=== PATIENT | male | born 1935 | race Caucasian/White ===

== ENCOUNTER → 2017-11-03 | Outpatient (CLI) | payer MEDICARE ==
[~2017-11-03] MED LIST: ADVAIR 250-501 EACH INH; ADVAIR HFA 115-12 GM INH; ASPIRIN81 MG PO; CENTRUM SILVER1 EAC4 PO; CLOBETASOL1 EA/15 GM TOP; COZAAR25 MG PO; CRESTOR10 MG; CRESTOR10 MG PO; CYCLOSET0.8 MG PO; DIATRIZOATE MEGL/DIATRIZOA SOD 30 ML BTL PO ONE; FLOVENT DISKUS50 MCG; FLUTICASONE PRO16 GM; HYDROCHLOROTHIA25 MG PO; IOPAMIDOL 370 MG/ML 200 ML INFUS..BTL INJ ONE; LEVOTHYROXINE50 MCG PO; LORATADINE10 MG PO; LOSARTAN; LOVAZA1 GM PO; METOPROLOL TART50 MG PO; NIACIN; OMEPRAZOLE40 MG PO; ONGLYZA5 MG PO; PEDIADERM TA 0115 GM TD; PEDIADERM TA 0115 GM TOP; POLYETHYLENE; RAPAFLO8 MG; RAPAFLO8 MG PO; SODIUM CHLORIDE 0.9% 250ML 500 ML ONE; SODIUM CHLORIDE 0.9% 50ML 50 ML ONE; SYSTANE BALANCE10 ML OU; SYSTANE LIQUID15 ML OU; TRAMADOL-ACETAMI1 EA PO; ULTRACET TABLE1 EACH PO; VOLTAREN100 GM TOP; XARELTO20 MG PO; Z LORATADINE PO; Z.0.ACTOS15 MG PO; Z.0.AMIODARONE HCL20 PO; Z.0.ASPIR 8181 MG PO; Z.0.CRESTOR10 MG PO; Z.0.FENOFIBRATE160 M PO; Z.0.GLIMEPIRIDE1 MG PO; Z.0.LOVAZA1 GM PO; Z.0.OMEPRAZOLE40 MG PO; Z.0.ONGLYZA5 MG PO; Z.0.TAMSULOSIN HCL0. PO; Z.3.CENTRUM SILVER1; [UNRECOGNIZED DRUG - OTHER]
[2017-11-03 16:40] LABS: CREATININE, SERUM 1.3 mg/dL (0.72-1.25)
[2017-11-03 16:48] LABS: BASOPHILS % 0.3 % (0.0-1.0); EOSINOPHILS # (AUTO) 0.2 (0.0-0.4); EOSINOPHILS % 2.2 % (0.0-6.0); HEMATOCRIT 32.1 % (38.2-49.6); HEMOGLOBIN 11.6 g/dL (14.0-18.0); LYMPHOCYTES # (AUTO) 1.9 (1.0-3.2); LYMPHOCYTES % 17.5 % (18.0-39.1); MEAN CORPUSCULAR HEMOGLOBIN 32.5 pg (28-32); MEAN CORPUSCULAR HGB CONC 36.1 g/dL (31-35); MEAN CORPUSCULAR VOLUME 89.9 fL (81-99); MONOCYTES % 9.7 % (4.4-11.3); NEUTROPHILS # (AUTO) 7.4 (2.1-6.9); NEUTROPHILS % 69.7 % (38.7-80.0); PLATELET COUNT 169 x10e3/uL (140-360); RED BLOOD COUNT 3.57 x10e6/uL (4.3-5.7); RED CELL DISTRIBUTION WIDTH 14.6 % (11.7-14.4)
--- NOTE | 2017-11-03 18:32 | Diagnostic Imaging Report ---
EXAM: CT Abdomen and Pelvis WITH contrast INDICATION: \S\DIARRHEA; ABD PAIN; HX OF DIVERTIC COMPARISON: CT dated 04/18/2017 TECHNIQUE: Abdomen and pelvis were scanned utilizing a multidetector helical scanner from the lung base to the pubic symphysis after administration of IV contrast. Coronal and sagittal reformations were obtained. Routine protocol was performed. Scan was performed when during portal venous phase. IV CONTRAST: 100 mL of Isovue-370 ORAL CONTRAST: Gastroview COMPLICATIONS: None RADIATION DOSE: Total DLP: 570.9 mGy*cm Estimated effective dose: (DLP x 0.015 x size factor) mSv CTDIvol has been reviewed. It is below the limits set by the Radiation Protocol Committee (RPC). FINDINGS: LINES and TUBES: Partially seen distal lead of cardiac pacemaker terminating in right ventricle. LOWER THORAX: The heart is borderline in size. Aortic annulus calcification. HEPATOBILIARY: No focal hepatic lesions. No biliary ductal dilation. GALLBLADDER: Cholecystectomy. SPLEEN: No splenomegaly. Calcified granulomas. PANCREAS: No focal masses or ductal dilatation. ADRENALS: No adrenal nodules KIDNEYS/URETERS: Kidneys enhance symmetrically. No hydronephrosis. Posterior left superior pole 2.6 cm cyst. There is also a posterior left midpole 4.7 x 4.5 cm cyst. Right midpole 3.6 cm cyst. There are few additional subcentimeter hypodensities which are too small to characterize. No stones. GI TRACT: No abnormal distention, wall thickening, or evidence of bowel obstruction. Right upper quadrant colonic interposition. Scattered colonic diverticula without evidence of diverticulitis. Appendix is normal. PELVIC ORGANS/BLADDER: Mildly prominent prostate measuring 4.8 cm in transverse diameter with coarse central calcification. Bladder is unremarkable. LYMPH NODES: No lymphadenopathy. VESSELS: Focal ectasia of infrarenal abdominal aorta, measuring 2.9 cm. Mild to moderate aortoiliac atherosclerotic calcification. PERITONEUM / RETROPERITONEUM: No free air or fluid. 2.1 x 2.3 cm left upper quadrant lesion which is best seen on series 301, image 52. There are preserved fat planes between this lesion and greater curvature of stomach. Splenic artery abuts the inferior portion of this lesion. BONES: Multilevel degenerative changes of the spine, most multiple at L2-L3. SOFT TISSUES: Unremarkable. IMPRESSION: 1. No acute inflammatory process in the abdomen/pelvis, specifically no signs acute diverticulitis. 2. 2.3 cm left upper quadrant lesion likely represents a pseudocyst in view of prior acute pancreatitis. Recommend attention on follow-up examination. 3. Bilateral renal cysts. Findings discussed with physician neurosurgical physician assistant Tiana at 6:25 PM, on 11/03/2017. Signed by: Dr. Karlo Cancino MD on 11/03/2017 6:28 PM
== END ==
LOC: CT 15:40
PROVIDERS: ATTEND Family Medicine
DX: R19.7 Diarrhea, unspecified (principal); R10.32 Left lower quadrant pain; Z87.19 Personal history of other diseases of the digestive system
CPT/HCPCS: 36415; 74177; 82565; 84520; 85025; J7050; Q9967

== ENCOUNTER → 2017-11-30 | Day surgery (SDC) | payer MEDICARE ==
[2017-11-24 10:48] LABS: BASOPHILS % 0.5 % (0.0-1.0); EOSINOPHILS # (AUTO) 0.3 (0.0-0.4); EOSINOPHILS % 3.7 % (0.0-6.0); HEMATOCRIT 36.1 % (38.2-49.6); HEMOGLOBIN 12.2 g/dL (14.0-18.0); LYMPHOCYTES # (AUTO) 1.6 (1.0-3.2); LYMPHOCYTES % 19.8 % (18.0-39.1); MEAN CORPUSCULAR HGB CONC 33.8 g/dL (31-35); MEAN CORPUSCULAR VOLUME 94.8 fL (81-99); MONOCYTES # (AUTO) 0.8 (0.2-0.8); MONOCYTES % 9.5 % (4.4-11.3); NEUTROPHILS # (AUTO) 5.4 (2.1-6.9); NEUTROPHILS % 66.1 % (38.7-80.0); PLATELET COUNT 183 x10e3/uL (140-360); RED BLOOD COUNT 3.81 x10e6/uL (4.3-5.7); RED CELL DISTRIBUTION WIDTH 14.3 % (11.7-14.4)
[~2017-11-30] MED LIST changes: +AMLODIPINE BESYL5 MG PO; +CARVEDILOL12.5 MG PO; -DIATRIZOATE MEGL/DIATRIZOA SOD 30 ML BTL PO ONE; -IOPAMIDOL 370 MG/ML 200 ML INFUS..BTL INJ ONE; +LIDOCAINE HCL 2% LOCAL INJ 5 ML SDV VIAL INJ ONE; +POTASSIUM CHLO10 ME1 PO; +PROPOFOL IV EMULSION 10 MG/ML 50 ML VIAL ONE; -SODIUM CHLORIDE 0.9% 250ML 500 ML ONE; -SODIUM CHLORIDE 0.9% 50ML 50 ML ONE
--- NOTE | 2017-11-30 10:45 | Operative Report ---
DATE OF PROCEDURE: November 30, 2017 REFERRING PHYSICIAN: Dr. Fabian Khan PROCEDURE PERFORMED: Esophagogastroduodenoscopy. INDICATIONS FOR EGD: Anemia. MEDICATION: Patient was done under MAC. Please see anesthesiologist's note. PROCEDURE: With the patient in the left lateral decubitus position, the flexible fiberoptic Olympus gastroscope was introduced into the esophagus under direct visualization without any difficulty. The esophagus appeared to be within normal limits. There was a small hiatal hernia and that was traversed with ease. The scope was advanced into the stomach. Mucosa overlying the antrum and the body revealed some patchy erythema and mild to moderate edema, and biopsies were obtained and sent to stain for H. pylori. The pylorus appeared to be of normal contour and shape. It was intubated with ease. The scope was advanced all the way to the 2nd portion of the duodenum. The mucosa overlying the proximal 2nd portion and the duodenal bulb appeared to be within normal limits. The scope was then withdrawn back into the stomach and retroflexed. The mucosa overlying the fundus and cardia appeared to be within normal limits. The scope was then straightened out. The stomach was decompressed. The scope was subsequently withdrawn. Patient tolerated the procedure well. IMPRESSION 1. Normal esophagus. 2. Small hiatal hernia. 3. Gastritis, biopsied. Biopsies sent to stain for Helicobacter pylori. PLAN: Follow up histology. Initiate Protonix 40 mg 1 p.o. q.a.m. a.c. Findings do not necessarily explain the patient's anemia. Will proceed with small bowel series. If negative, might consider a colonoscopy. Job#: [id number] RI cc:FABIAN KHAN DO
== END | disposition home or self-care (01) ==
LOC: OR 07:22
PROVIDERS: ATTEND Internal Medicine Gastroenterology
DX: D64.9 Anemia, unspecified (principal); K29.70 Gastritis, unspecified, without bleeding; K44.9 Diaphragmatic hernia without obstruction or gangrene; R19.7 Diarrhea, unspecified; E11.9 Type 2 diabetes mellitus without complications; M19.90 Unspecified osteoarthritis, unspecified site; J44.9 Chronic obstructive pulmonary disease, unspecified; G47.33 Obstructive sleep apnea (adult) (pediatric); K86.3 Pseudocyst of pancreas; I10 Essential (primary) hypertension; H91.90 Unspecified hearing loss, unspecified ear; E03.9 Hypothyroidism, unspecified; R42 Dizziness and giddiness; F17.290 Nicotine dependence, other tobacco product, uncomplicated; Z01.810 Encounter for preprocedural cardiovascular examination; Z01.812 Encounter for preprocedural laboratory examination; Z79.82 Long term (current) use of aspirin; Z79.02 Long term (current) use of antithrombotics/antiplatelets; Z99.81 Dependence on supplemental oxygen; Z68.31 Body mass index [BMI] 31.0-31.9, adult; Z95.0 Presence of cardiac pacemaker
CPT/HCPCS: 36415 ×2; 43239; 82948; 85025; 88305; 88312; 93005; J2001

== ENCOUNTER 2017-12-12 06:42 | Inpatient (IN) | payer MEDICARE ==
[~2017-12-12] VITALS: Ht 177.8 cm; Wt 83.9 kg
[~2017-12-12 06:42] MED LIST changes: +ALLERGY RELIEF60 MG PO; +ARTIFICIAL TEA1 EACH OP; +CENTRUM SILVER1 EAC3 PO; +FISH OIL 1,0001 EAC2 PO; +FUROSEMIDE40 MG PO; -LIDOCAINE HCL 2% LOCAL INJ 5 ML SDV VIAL INJ ONE; -PROPOFOL IV EMULSION 10 MG/ML 50 ML VIAL ONE
[2017-12-12] MEDS ORDERED: MORPHINE SULFATE 2 MG/ML SYR IV STA (07:07)
[2017-12-12] MEDS ORDERED: SODIUM CHLORIDE 0.9% 500ML 500 ML IV STA ×2 (07:07→13:03)
[2017-12-12] MEDS ORDERED: FENTANYL CITRATE/PF 100MCG/2 ML INJ IV ONE ×2 (07:45→08:45)
[2017-12-12 07:54] LABS: BASOPHILS % 0.1 % (0.0-1.0); EOSINOPHILS % 0.1 % (0.0-6.0); HEMATOCRIT 41.9 % (38.2-49.6); HEMOGLOBIN 14.3 g/dL (14.0-18.0); LYMPHOCYTES # (AUTO) 1.4 (1.0-3.2); MEAN CORPUSCULAR HEMOGLOBIN 31.4 pg (28-32); MEAN CORPUSCULAR HGB CONC 34.1 g/dL (31-35); MEAN CORPUSCULAR VOLUME 91.9 fL (81-99); MONOCYTES # (AUTO) 1.6 (0.2-0.8); MONOCYTES % 7.9 % (4.4-11.3); NEUTROPHILS # (AUTO) 17.5 (2.1-6.9); NEUTROPHILS % 84.4 % (38.7-80.0); PLATELET COUNT 202 x10e3/uL (140-360); RED BLOOD COUNT 4.56 x10e6/uL (4.3-5.7); RED CELL DISTRIBUTION WIDTH 13.8 % (11.7-14.4)
[2017-12-12] MEDS: ONDANSETRON HCL INJ 2 MG/ML VIAL IV PRN (08:01)
--- NOTE | 2017-12-12 08:03 | Diagnostic Imaging Report ---
Exams: Head and Cervical Spine CTs without IV contrast History: Trauma, fall Comparison studies: None Technique: Axial images were obtained from the brain and cervical spine. Coronal and sagittal images reconstructed from the axial data. Intravenous contrast: None Findings: Head CT: Scalp: No abnormalities. Bones: No fractures, blastic or lytic lesions. Extra-axial spaces: No masses. No fluid collections. Brain sulci: Mildly prominent. Ventricles: Mild compensatory dilatation. No hydrocephalus. Extra-axial spaces: No mass, no fluid collection. Parenchyma: No mass, acute hemorrhage or acute cortical vascular insults. A few scattered hypodensities in the supratentorial white matter are nonspecific but most compatible with chronic small vessel ischemic changes. Unchanged small chronic cortical/subcortical insult along the right superior frontal sulcus posteriorly. Additional small chronic insult with encephalomalacia in the posterior left cerebellum and small lacunar insult in the right middle cerebellum. Sellar/suprasellar region: No abnormalities. Craniocervical junction: The foramen magnum is patent. No Chiari one malformation. Cervical spine CT: Fractures: None. Soft tissues: No gross abnormalities. Atlantoaxial articulation: Intact. Alignment: Straightened cervical curvature. Minimal anterolisthesis of C2 on C3 and mild anterolisthesis of C7 on T1 and T1 on T2 which may be degenerative in etiology. Cervicomedullary junction: No abnormalities. The foramen magnum is patent. Vertebrae: No infection. Nonaggressive-appearing nonspecific 9 mm sclerotic lesion in the anterior T1 vertebral body, possibly bone island. Degenerative changes: C1-C2: Narrowing at the atlantodental interval with enthesophyte formation along the anterior C1 arch. C2-C3: Mildly degenerated disc. Moderate left and mild right facet arthrosis. Patent canal and foramina. C3-C4: Mildly degenerated disc. No significant canal stenosis. Mild left foraminal stenosis due to uncovertebral facet arthrosis. Patent right foramen. C4-C5: Severely degenerated disc with near complete loss of disc height. Mild canal stenosis due to a disc osteophyte complex. Moderate bilateral foraminal stenosis due to uncovertebral arthrosis and moderate left and mild right facet arthrosis. C5-C6 moderately degenerated disc. Moderate canal stenosis due to a disc osteophyte complex. Severe right and moderate left foraminal stenosis due to uncovertebral facet arthrosis. C6-C7: Moderate to severe canal stenosis due to a disc osteophyte complex. Severe bilateral foraminal stenosis due to uncovertebral facet arthrosis. C7-T1: Moderately degenerated disc. Anterolisthesis of C7 on T1 with associated facet arthrosis result in mild to moderate left foraminal stenosis. No significant right foraminal stenosis or canal stenosis. T1-T2: Moderately degenerated disc. Moderate bilateral facet arthrosis. Anterolisthesis of T1 on T2 with associated uncovered disc and facet arthrosis with moderate right foraminal stenosis. No significant canal or left foraminal stenosis. Additional findings: Partially imaged small left pneumothorax and gas gas within the included upper left dorsal thoracic soft tissues. Incidental findings: Atherosclerotic calcifications in the carotid siphons and left intradural artery. Bilateral lens replacements related to previous cataract surgery. IMPRESSION: Head CT: 1. No acute abnormalities. 2. No changes from the previous head CT of 03/08/2016. 3. Mild generalized volume loss. 4. Mild chronic microvascular ischemic changes with small chronic right frontal and bilateral cerebellar insults. Cervical spine CT: 1. No cervical spine fracture or acute subluxation. 2. Advanced degenerative changes as described with moderate to severe canal stenosis at C6-C7. 3. Cannot adequately evaluate ligament, spinal cord and or vascular abnormalities on the basis of this examination. 4. Left apical pneumothorax. Please refer to chest CT report for the same date for further characterization of thoracic findings. Findings were discussed with Dr. Hendricks at 7:54 AM on 12/12/2017. Signed by: Dr. Pankaj Linares M.D. on 12/12/2017 7:59 AM
[2017-12-12 08:06] LABS: INR 0.96; PROTHROMBIN TIME 13.3 seconds (11.9-14.5)
[2017-12-12 08:07] LABS: PARTIAL THROMBOPLASTIN TIME 33.5 seconds (23.8-35.5)
--- NOTE | 2017-12-12 08:07 | Diagnostic Imaging Report ---
PROCEDURE: CT CHEST WITHOUT CONTRAST CT scan of the chest WITHOUT intravenous contrast, using standard protocol. TECHNIQUE: The chest was scanned utilizing a multidetector helical scanner from the apex to the level of the adrenal glands. No IV contrast was administered as per physician request. Coronal and sagittal multiplanar reformations were obtained. COMPARISON: None. INDICATIONS: FALL, RIB PAIN, RIB FRACTURE FINDINGS: Lines/tubes: Right chest cardiac device with leads positioned within the right atrium and ventricle. Lungs and Airways: Contusion is present in the left lower lobe. Scattered blebs are noted in the lungs bilaterally. The right lung is clear, without focal mass or consolidation. Pleura: Small left hemothorax is present. Pneumothorax is present in the left lung, with the largest component in the anterior aspect of the left lung base with a smaller pneumothorax in the left apex. No right pleural effusion or pneumothorax. Heart and mediastinum: Atherosclerotic calcifications of the thoracic aorta and coronary arteries. The thyroid gland is normal. No significant mediastinal, hilar or axillary lymphadenopathy is seen. The heart and pericardium are within normal limits. Soft tissues: Subcutaneous air is present along the left lateral chest wall. Abdomen: Limited views of the upper abdomen show no abnormality within the visualized liver, spleen, pancreas, or kidneys. The adrenal glands are normal. Cholecystectomy. Bilateral renal simple cysts are partially visualized. Several coarse calcifications of the spleen are present. No splenic laceration. Bones: The visualized bony thorax is within normal limits. Rib fractures include the following: Acute transverse fracture of the left lateral fourth rib. Acute comminuted fractures of the lateral fifth rib and the posterolateral left fifth rib. Acute comminuted fractures of the left lateral sixth rib and the posterolateral left sixth rib. Acute comminuted fractures of the left posterior seventh rib and the lateral seventh rib. Acute comminuted fractures of the left posterior eighth rib and the posterolateral eighth rib. Acute comminuted fracture of the left posterior ninth rib. IMPRESSION: Multiple left rib fractures with flail components of the left fifth, sixth, seventh, and eighth ribs. Contusion of the left lower lobe. Small left hemothorax. Left pneumothorax. The findings were discussed with the emergency room physician at 0745 hrs. on 12/12/2017. Dictated by: Jose Mock M.D. on 12/12/2017 at 8:17 Electronically approved by: Jose Mock M.D. on 12/12/2017 at 8:17
[2017-12-12 08:17] LABS: ALBUMIN 3.9 g/dL (3.5-5.0); ANION GAP 16.2 mmol/L (8-16); CALCIUM 10.2 mg/dL (8.4-10.2); CREATININE, SERUM 2.07 mg/dL (0.72-1.25); POTASSIUM 3.2 mmol/L (3.5-5.1)
[2017-12-12 08:26] LABS: CREATINE KINASE MB 4.9 ng/mL (0.00-5.00)
[2017-12-12] MEDS ORDERED: KETOCONAZOLE15 GM TOP (08:38)
[2017-12-12] MEDS ORDERED: [UNRECOGNIZED DRUG - OTHER] TOP (08:38)
[2017-12-12] MEDS ORDERED: ADVAIR 100-501 EACH INH (08:38)
[2017-12-12] MEDS ORDERED: [UNRECOGNIZED DRUG - OTHER] PO (08:38)
[2017-12-12] MEDS ORDERED: VOLTERAN TOP (08:38)
[2017-12-12] MEDS ORDERED: LOVENOX60 MG/0.6 SC (08:38)
[2017-12-12] MEDS: SODIUM CHLORIDE 0.9% 1000ML 1,000 ML IV SCH ×3 (08:39→23:49)
--- NOTE | 2017-12-12 10:00 | Diagnostic Imaging Report ---
CORRECTION Corrected on: 12/12/2017; Dictated by: Jose Mock M.D. on 12/12/2017 at 10:12 Electronically approved by: Jose Mock M.D. on 12/12/2017 at 10:12 PROCEDURE: A single AP view of the chest. COMPARISON: CT chest 12/12/2017. INDICATIONS: PNEUMOTHORAX FINDINGS: Lines/tubes: Right chest cardiac device with leads projecting over the expected regions of the right atrium and ventricle. Lungs: Contusion in the left lung base. The right lung is clear. Pleura: Trace left apical pneumothorax. Small left pleural effusion. Heart and mediastinum: The heart and the mediastinum are unremarkable. Bones: No acute bony abnormality. Multiple left lateral fractures. Subcutaneous air along the left lateral chest wall. IMPRESSION: Trace left apical pneumothorax. Dictated by: Jose Mock M.D. on 12/12/2017 at 10:10 Electronically approved by: Jose Mock M.D. on 12/12/2017 at 10:10
[2017-12-12] MEDS: FENTANYL CITRATE/PF 100MCG/2 ML INJ IV PRN ×4 (11:56→19:55)
--- NOTE | 2017-12-12 13:12 | Diagnostic Imaging Report ---
PROCEDURE: A single AP view of the chest. COMPARISON: [facility], CT, CT CHEST WO, 12/12/2017, 7:19. INDICATIONS: UPRIGHT PORT. CHEST X-RAY FOR PNEUMOTHORAX FINDINGS: See impression. IMPRESSION: 1. hypoinflated lungs. No definite pneumothorax is visualized. Subcutaneous air is again seen along the lateral left chest wall. 2. Left retrocardiac opacity and obscuration of the left hemidiaphragm, likely representing a combination of effusion, atelectasis, and lung contusion. 3. Atelectatic changes in the right lower lobe. 4. Stable right upper chest multilead cardiac device. 5. Multiple left-sided rib fractures, which are better seen on prior CT Eugene López M.D. Dictated by: Eugene López M.D. on 12/12/2017 at 13:22 Electronically approved by: Eugene López M.D. on 12/12/2017 at 13:22
[2017-12-12] MEDS ORDERED: FENTANYL CITRATE/PF 100MCG/2 ML INJ ONE (17:39)
[2017-12-12] MEDS ORDERED: HYDROMORPHONE 1MG/1ML INJ IV PRN (19:45)
[2017-12-12] MEDS: PANTOPRAZOLE 40 MG 10ML VIAL IV SCH (20:22)
[2017-12-12] MEDS: CEFTRIAXONE SOD 1 GM VIAL IV SCH (20:22)
[2017-12-12] MEDS: HYDROMORPHONE 2MG/ML INJ IV PRN (21:25)
[2017-12-12 21:45] VITALS: BP 98/58
[2017-12-13] VITALS (7 sets, daily range): BP systolic 103–150; BP diastolic 51–94
[2017-12-13] MEDS: HYDROMORPHONE 2MG/ML INJ IV PRN ×6 (03:07→23:23)
[2017-12-13] MEDS: SODIUM CHLORIDE 0.9% 1000ML 1,000 ML IV SCH ×2 (03:42)
--- NOTE | 2017-12-13 06:05 | Diagnostic Imaging Report ---
EXAM: CHEST SINGLE (PORTABLE), AP 1 view ORDER DATE: 12/13/2017 7:00 AM Time stamp on exam: 0533 hours INDICATION: Hemopneumothorax COMPARISON: AP view of the chest December 12, 2017 FINDINGS: LINES/TUBES: Stable position right approach dual lead cardiac device LUNGS: Hazy opacity over the left lung base. PLEURA: Possible increase in layering left hemothorax. No pneumothorax. HEART AND MEDIASTINUM: Stable size BONES AND SOFT TISSUES: Displaced left posterior lateral rib fractures of at least 5, 6 and 7 with adjacent chest wall emphysema. IMPRESSION: Possible increase in layering left hemothorax versus differences in positioning. No pneumothorax. Signed by: Dr. Sharron Pedraza M.D. on 12/13/2017 6:01 AM
[2017-12-13 06:21] LABS: BASOPHILS % 0.2 % (0.0-1.0); HEMATOCRIT 32.9 % (38.2-49.6); LYMPHOCYTES # (AUTO) 1.4 (1.0-3.2); LYMPHOCYTES % 13.8 % (18.0-39.1); MEAN CORPUSCULAR HEMOGLOBIN 31.1 pg (28-32); MEAN CORPUSCULAR HGB CONC 33.1 g/dL (31-35); MONOCYTES # (AUTO) 1.3 (0.2-0.8); NEUTROPHILS # (AUTO) 7.5 (2.1-6.9); NEUTROPHILS % 72.7 % (38.7-80.0); PLATELET COUNT 150 x10e3/uL (140-360)
[2017-12-13 06:33] LABS: HEMOGLOBIN 10.9 g/dL (14.0-18.0)
[2017-12-13 06:54] LABS: ANION GAP 12.1 mmol/L (8-16); CALCIUM 8.3 mg/dL (8.4-10.2); CREATININE, SERUM 1.72 mg/dL (0.72-1.25); POTASSIUM 3.1 mmol/L (3.5-5.1)
[2017-12-13] MEDS: ONDANSETRON HCL INJ 2 MG/ML VIAL IV PRN ×2 (08:10→21:34)
[2017-12-13] MEDS ORDERED: POTASSIUM CHLORIDE 20MEQ/15ML UDC NG PRN (08:45)
[2017-12-13] MEDS: CARVEDILOL 12.5 MG TAB PO SCH ×2 (09:00→17:30)
[2017-12-13] MEDS: SALMETEROL/FLUTICASONE 100/50 INH SCH (09:00)
[2017-12-13] MEDS ORDERED: LEVOTHYROXINE SODIUM 50 MCG TAB PO SCH (09:00)
[2017-12-13] MEDS: FLUTICASONE PROPIONATE NASAL SPRAY NS SCH (09:00)
[2017-12-13] MEDS: KETOCONAZOLE 2% CREAM/15 GM TUBE TOP SCH (09:00)
--- NOTE | 2017-12-13 09:24 | Consultation ---
DATE OF CONSULTATION: December 13, 2017 PULMONARY CONSULTATION Patient of Dr. Gee Bolaños, Dr. Primo Browne and Dr. Gume Barber. An unfortunate 82-year-old gentleman with a history of syncopal episode getting up from the commode after his bowel prep for colonoscopy. He has had chronic diarrhea since October 25, 2017. He also had a fall at that time. On this occasion, he suffered multiple rib fractures, 5-9 on his left chest. He has a history of hypertension, congestive heart failure with ejection fraction of about 30%, wore the vest in the past for 9 months. He has a history of BPH, history of gallstone pancreatitis, colon cancer in 2001, mild coronary disease, AV sequential pacemaker, sleep apnea, chronic kidney disease, dilated aortic root, left subclavian stenosis. ALLERGIES: BYSTOLIC AND ANTARA ACCORDING TO RECORDS. Cataract surgery, cholecystectomy, colectomy for cancer. FAMILY HISTORY: Positive for cancer and coronary disease. Smokes a pipe. He has, according to the daughter, a history of COPD. There is a question of adverse reaction to Crestor in the past. He has had cholecystectomy in April of 2017. MEDICATIONS: Include amlodipine, aspirin, Coreg, Lovenox, Flonase, Advair, Lasix, hydrochlorothiazide, ketoconazole shampoo, Levoxyl, vitamins, Prilosec, potassium, Crestor, Rapaflo, Vascepa, Voltaren cream. PHYSICAL EXAMINATION GENERAL: He is a tall white male looking his stated age. He did work for [employer] in [employer]. VITALS: Temperature 98.4, pulse 60, respirations 18, blood pressure 130/60. HEENT: Head is normocephalic and atraumatic. There is balding. LUNGS: Breath sounds bilaterally. Tender ribs of left chest wall laterally. ABDOMEN: Nontender. EXTREMITIES: Nonedematous. IMPRESSION 1. Multiple rib fractures, left chest. 2. History of chronic bronchitis and sinusitis. 3. Sick sinus syndrome. 4. Atrial fibrillation. 5. Congestive heart failure. 6. Obstructive sleep apnea. Will defer chest tube placement at this time. Early mobilization. Continue bronchodilators. White count was elevated on admission, and is now normal. Surgical opinion is pending. Resume BiPAP. Therapy for heart failure per cardiology. The patient probably requires re-evaluation of his pacemaker and will hold his diuretics. Check orthostatic blood pressure. PT and OT. Thank you for this kind referral. Job#: [id number] DEE
[2017-12-13 09:30] LABS: FREE THYROXINE INDEX 2.4669 (1.4-3.8); THYROID STIMULATING HORMONE 0.36 uIU/mL (0.350-4.940)
[2017-12-13] MEDS ORDERED: POTASSIUM CHLORIDE 20MEQ/15ML UDC PO PRN (11:00)
[2017-12-13] MEDS: FENTANYL CITRATE/PF 100MCG/2 ML INJ IV PRN ×4 (11:00→21:30)
[2017-12-13 12:42] LABS: ABG HCO3 24 mmol/L (23-28); ABG PCO2 40 mmHg (41-51); ABG PH 7.38 (7.31-7.41); ABG PO2 82 mmHg (80-105)
[2017-12-13] MEDS: ALBUTEROL/IPRATROPIUM 3 ML NEB NEB SCH ×2 (13:00→20:15)
--- NOTE | 2017-12-13 16:59 | Diagnostic Imaging Report ---
PROCEDURE: A single AP view of the chest. COMPARISON: Chest radiograph 12/12/2017 INDICATIONS: SHORTNESS OF BREATH FINDINGS: See impression. IMPRESSION: 1. No significant change from 12/12/2017. 2. No definite pneumothorax visualized. Subcutaneous air along the lateral left chest wall. 3. Left retrocardiac opacity and obscuration of the left hemidiaphragm, likely representing a combination of pleural effusion, atelectasis, and lung contusion. 4. Mild atelectasis in the right lung base. 5. Stable right upper chest multilead cardiac device. 6. Multiple left-sided rib fractures. Dictated by: Leon Oliva M.D. on 12/13/2017 at 17:08 Electronically approved by: Leon Oliva M.D. on 12/13/2017 at 17:08
[2017-12-13] MEDS: PANTOPRAZOLE 40 MG 10ML VIAL IV SCH (20:06)
[2017-12-13] MEDS: SIMVASTATIN 20 MG TAB PO SCH (20:07)
[2017-12-13] MEDS: CEFTRIAXONE SOD 1 GM VIAL IV SCH (20:07)
[2017-12-13] MEDS ORDERED: SIMVASTATIN 40 MG TAB PO SCH (21:00)
[2017-12-13] MEDS: BALSAM PERU/CASTOR OIL 60 GM OINT...G. TP SCH (21:34)
[2017-12-14] VITALS (8 sets, daily range): BP systolic 126–165; BP diastolic 63–75
[2017-12-14] MEDS: FENTANYL CITRATE/PF 100MCG/2 ML INJ IV PRN ×6 (01:45→21:50)
[2017-12-14] MEDS: HYDROMORPHONE 2MG/ML INJ IV PRN ×5 (02:30→23:20)
[2017-12-14] MEDS: ALBUTEROL/IPRATROPIUM 3 ML NEB NEB SCH ×4 (04:05→20:31)
[2017-12-14] MEDS: LEVOTHYROXINE SODIUM 50 MCG TAB PO SCH (06:15)
--- NOTE | 2017-12-14 06:15 | Diagnostic Imaging Report ---
EXAM: CHEST SINGLE (PORTABLE), AP 1 view ORDER DATE: 12/14/2017 7:00 AM Time stamp on exam: 0514 hours INDICATION: Flail chest, hemothorax COMPARISON: AP view of the chest December 13, 2017 FINDINGS: LINES/TUBES: Stable position of right approach dual lead cardiac device. LUNGS: Low inspiration with bibasilar atelectasis, left greater than right. PLEURA: Stable left hemothorax. No pneumothorax. HEART AND MEDIASTINUM: Stable appearance BONES AND SOFT TISSUES: Multiple left posterior and lateral broken rib fractures with adjacent subcutaneous emphysema. IMPRESSION: Stable exam. Signed by: Dr. Sharron Pedraza M.D. on 12/14/2017 6:11 AM
[2017-12-14 06:19] LABS: BASOPHILS % 0.2 % (0.0-1.0); EOSINOPHILS % 0.2 % (0.0-6.0); HEMATOCRIT 33.1 % (38.2-49.6); HEMOGLOBIN 10.7 g/dL (14.0-18.0); LYMPHOCYTES # (AUTO) 1.2 (1.0-3.2); LYMPHOCYTES % 11.4 % (18.0-39.1); MEAN CORPUSCULAR HEMOGLOBIN 31.1 pg (28-32); MEAN CORPUSCULAR HGB CONC 32.3 g/dL (31-35); MEAN CORPUSCULAR VOLUME 96.2 fL (81-99); MONOCYTES # (AUTO) 1.4 (0.2-0.8); NEUTROPHILS # (AUTO) 7.6 (2.1-6.9); NEUTROPHILS % 73.8 % (38.7-80.0); PLATELET COUNT 136 x10e3/uL (140-360); RED BLOOD COUNT 3.44 x10e6/uL (4.3-5.7); RED CELL DISTRIBUTION WIDTH 14.2 % (11.7-14.4)
[2017-12-14 06:43] LABS: ALBUMIN/GLOBULIN RATIO 0.9 (0.8-2.0); ANION GAP 10.6 mmol/L (8-16); CALCIUM 8.5 mg/dL (8.4-10.2); CREATININE, SERUM 1.43 mg/dL (0.72-1.25); POTASSIUM 3.6 mmol/L (3.5-5.1)
[2017-12-14] MEDS: SALMETEROL/FLUTICASONE 100/50 INH SCH (08:08)
[2017-12-14] MEDS: FLUTICASONE PROPIONATE NASAL SPRAY NS SCH (09:00)
[2017-12-14] MEDS: CARVEDILOL 12.5 MG TAB PO SCH ×2 (09:00→17:15)
[2017-12-14] MEDS: BALSAM PERU/CASTOR OIL 60 GM OINT...G. TP SCH ×2 (09:00→16:00)
[2017-12-14] MEDS: KETOCONAZOLE 2% CREAM/15 GM TUBE TOP SCH (09:00)
[2017-12-14] MEDS: SODIUM CHLORIDE 0.9% 1000ML 1,000 ML IV SCH (14:32)
[2017-12-14] MEDS ORDERED: DEXTROSE 5%/0.45% SOD CHL 1,000 ML IV ONE (16:00)
[2017-12-14] MEDS: PANTOPRAZOLE 40 MG 10ML VIAL IV SCH (21:43)
[2017-12-14] MEDS: CEFTRIAXONE SOD 1 GM VIAL IV SCH (21:43)
[2017-12-14] MEDS: SIMVASTATIN 20 MG TAB PO SCH (21:44)
[2017-12-14] MEDS: ONDANSETRON HCL INJ 2 MG/ML VIAL IV PRN (22:17)
[2017-12-15] VITALS (8 sets, daily range): BP systolic 135–180; BP diastolic 64–80
[2017-12-15] MEDS: ALBUTEROL/IPRATROPIUM 3 ML NEB NEB SCH ×4 (01:05→21:18)
[2017-12-15] MEDS: HYDROMORPHONE 2MG/ML INJ IV PRN ×4 (04:05→23:28)
[2017-12-15] MEDS: FENTANYL CITRATE/PF 100MCG/2 ML INJ IV PRN (05:30)
[2017-12-15] MEDS: LEVOTHYROXINE SODIUM 50 MCG TAB PO SCH (06:11)
[2017-12-15 06:17] LABS: BASOPHILS % 0.1 % (0.0-1.0); EOSINOPHILS # (AUTO) 0.1 (0.0-0.4); EOSINOPHILS % 1.4 % (0.0-6.0); HEMATOCRIT 30.5 % (38.2-49.6); HEMOGLOBIN 9.9 g/dL (14.0-18.0); LYMPHOCYTES # (AUTO) 1.3 (1.0-3.2); LYMPHOCYTES % 13.5 % (18.0-39.1); MEAN CORPUSCULAR HEMOGLOBIN 31.2 pg (28-32); MEAN CORPUSCULAR HGB CONC 32.5 g/dL (31-35); MEAN CORPUSCULAR VOLUME 96.2 fL (81-99); MONOCYTES # (AUTO) 1.5 (0.2-0.8); MONOCYTES % 15.4 % (4.4-11.3); NEUTROPHILS # (AUTO) 6.8 (2.1-6.9); NEUTROPHILS % 69.3 % (38.7-80.0); PLATELET COUNT 126 x10e3/uL (140-360); RED BLOOD COUNT 3.17 x10e6/uL (4.3-5.7)
[2017-12-15 06:40] LABS: ALBUMIN 2.6 g/dL (3.5-5.0); ALBUMIN/GLOBULIN RATIO 0.8 (0.8-2.0); ANION GAP 9.4 mmol/L (8-16); CALCIUM 8.5 mg/dL (8.4-10.2); CREATININE, SERUM 1.23 mg/dL (0.72-1.25); POTASSIUM 3.4 mmol/L (3.5-5.1)
--- NOTE | 2017-12-15 07:14 | Diagnostic Imaging Report ---
EXAM: CHEST SINGLE (PORTABLE), AP 1 view ORDER DATE: 12/15/2017 5:00 AM Time stamp on exam: 0633 hours INDICATION: Fall, left rib fractures COMPARISON: AP view of the chest December 14, 2017 FINDINGS: LINES/TUBES: Stable position right approach pacemaker LUNGS: Stable bibasilar atelectasis. PLEURA: Stable small left hemothorax. No pneumothorax. HEART AND MEDIASTINUM: Stable appearance. BONES AND SOFT TISSUES: Multiple left posterior and lateral broken rib fractures with adjacent subcutaneous emphysema. IMPRESSION: Stable appearance of the chest. No pneumothorax. Signed by: Dr. Sharron Pedraza M.D. on 12/15/2017 7:11 AM
[2017-12-15 07:48] LABS: EOSINOPHILS % (MANUAL) 1 % (0-7); HYPOCHROMASIA SLIGHT; LYMPHOCYTES % (MANUAL) 10 % (19-48); MONOCYTES % (MANUAL) 14 % (3.4-9.0); NEUTROPHILS % (MANUAL) 74 % (40-74); PLATELET ESTIMATE SLIGHTLY DECREASED; PLATELET MORPHOLOGY COMMENT FEW LARGE; RBC MORPHOLOGY COMMENT NORMAL
[2017-12-15] MEDS: SALMETEROL/FLUTICASONE 100/50 INH SCH (07:49)
--- NOTE | 2017-12-15 08:11 | Operative Report ---
DATE OF PROCEDURE: December 14, 2017 INDICATION: Mr. Hope is 82-year-old gentleman who had sustained a fall on December 12, 2017 at 2 o'clock in the morning. He had been using a bowel prep to clean his bowels in preparation for a colonoscopy. He had been having multiple bowel movements. At 2 o'clock in the morning, he had gone to use the restroom to have bowel movement. On standing up to zip himself, he fell down and he was aware of himself hitting the left side of his body and hitting his head. He laid there for unknown period of time, then got up and sat on a chair before coming downstairs to meet the rest of the family. Since he had a permanent pacemaker, it was decided to interrogate device to look for any evidence of pacemaker malfunction and also to review the pacemaker arrhythmia log to see if there were any tachyarrhythmia events. PROCEDURE: The patient had [employer] programmer analyst by the bedside. We did interrogate the device and also checked for atrial and ventricular pacing thresholds. It was found that the patient had an atrial impedance of 430 ohms. The sensed P-wave was 1.7 millivolts (chronically at 1.5 millivolts). The pacing threshold in the atrium was down to 0.3 volts at 0.5 milliseconds pulse width. For the ventricular lead, the pacing impedance was 480 ohms. The pacing threshold was down to 0.8 volts at 0.4 milliseconds pulse width. The sensed R-wave was over 12 millivolts. We did also complete a magnet rate check and found it to be at 100 beats per minute. The remaining longevity on the battery was estimated at 1.5 years. These were felt to be acceptable sensing and pacing parameters for both atrium and ventricle. We then directed our attention to the arrhythmia log book. It would appear that since November 12, 2017 there has not been any atrial or ventricular tachyarrhythmias at rates of 160 beats/min or more. IMPRESSION: It was felt that the patient's "syncope" event was likely a combination of volume depletion and a vasovagal syncope. There is no evidence on pacemaker interrogation of pacemaker malfunction. In addition, based on the arrhythmia log, it was unlikely that the patient has ventricular tachyarrhythmia/ventricular fibrillation since there were no tachyarrhythmias over 160 beats per minute logged since November 12, 2017. PLAN: Continue current set parameters for the pacemaker. The option of an implantable loop recorder was discussed with the patient and the family. They will further think about this concept. Job#: [id number] DR LAM
--- NOTE | 2017-12-15 08:15 | Consultation ---
DATE OF CONSULTATION: December 14, 2017 CARDIOLOGY CONSULTATION REFERRING PHYSICIAN: Dr. Zohreh Vidal PRIMARY CARE PHYSICIAN: Dr. Raven Ramos IDENTIFICATION: This is 82-year-old gentleman well known to our service. He is followed in our clinic. He does have a background history of paroxysmal atrial fibrillation. He also does have a [employer] dual-chamber pacemaker for tachybrady syndrome. More recently, he was seen in evaluation of a slow ventricular tachycardia at times resembling an accelerated idioventricular rhythm. When originally seen in the clinic, he was in congestive heart failure and had a LifeVest that he wore until we were able to up titrate his left ventricular systolic function to the 50% to 55% range. The LifeVest was discontinued on August 21, 2017. His slow ventricular tachycardia was consistently in the range 110 to 120 beats per minute. There was a triggered event while on the LifeVest for an idioventricular rhythm in the range of 80 to 90 beats per minute on 2 separate occasions. He does have in addition known history of cardiac risk factors including type 2 diabetes mellitus, hypertension, and smoking history. The patient did have a cardiac catheterization completed in November of 2016 showing mild aortic stenosis and known 50% blockage in 1 vessel. REASON FOR CONSULTATION: Evaluation of possible syncopal episode on December 12, 2017. HISTORY OF PRESENT ILLNESS: According to the patient and supported by his daughter at bedside, the patient had been undergoing a bowel preparation on December 11, 2017. He had multiple loose bowel movements in preparation for a colonoscopy. At 2 o'clock in the morning on December 12, 2017, he went to the bathroom and after having a bowel movement, was standing up and zipping himself, when he "lost consciousness." The patient, however, had the wherewithal to know that he landed on his left side, then he hit his head suggesting he did not completely loose consciousness. He stated he did not attempt to break his fall. He lay on the ground for undetermined period of time before standing up and walking to a chair. He sat on the chair again for an undetermined period of time before coming downstairs and meeting the rest of the family at about 6 o'clock in the morning. He stated he had no prodromal symptoms such as nausea, diaphoresis, warmth, loss of energy. He had a similar episode on October 25, 2017 when he fell on his left arm and suffered severe abrasions. The patient on the occasion of December 12, 2017 has sustained multiple rib fractures in the left anterior chest. Since admission to hospital, he has been evaluated by Dr. Larios and it was felt that he did not need placement of a chest tube on the left side. We were contacted by the patient's daughter, who is an EMT, on December 14, 2017 and asked to see the patient in consultation. We did interrogate the patient's pacemaker on December 14, 2017 at the time of consultation. It was found that indeed pacemaker had no more function and had an estimated battery life of 1-1/2 years. Furthermore, we did interrogate the pacemaker's arrhythmia log and found that Mr. Hope did not have any tachyarrhythmias of 160 beats per minute or above in either the atrium or ventricle since November 12, 2017. The patient, however, has had postural hypertension. Supine, his blood pressure since admission has been in the range of 135/73, dropping down to as low as 89/60 when upright. He has not had any further episodes of lightheadedness or syncope. PAST MEDICAL HISTORY: This, however, was notable for a history of hypertension, diabetes mellitus, hyperlipidemia, and deafness requiring hearing aids. He has a permanent pacemaker that was originally implanted in [facility] in 2008. He has also had a cholecystectomy in April of 2017 and a history of diverticulitis in 2001. In addition, there is a history of COPD, benign prostatic hypertrophy, history of gallstones in the past, pancreatitis, colon cancer in 2001 with history of colectomy in the past, mild coronary artery disease, AV sequential pacemaker for tachybrady syndrome in the setting of paroxysmal atrial fibrillation, sleep apnea, chronic renal insufficiency, aortic root dilatation, left subclavian vein stenosis. PAST SURGICAL HISTORY: In addition, his past surgical history does include cataract surgery, permanent pacemaker implantation, cholecystectomy, colectomy for cancer. ALLERGIES: HE HAS STATED ALLERGIES TO BYSTOLIC, ANTARA, AND HYZAAR ALL WHICH CAUSED SKIN IRRITATION. MEDICATIONS: Please see the MAR. SOCIAL HISTORY: He does smoke a pipe. There is no active history of recreational drug use or tobacco use. 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 FAMILY HISTORY: Notable for both parents having had heart disease and hypertension. There is also additional family history of cancer. REVIEW OF SYSTEMS: A 14-point review of systems was otherwise notable for history of COPD. HE HAD AN ADVERSE REACTION TO CRESTOR IN THE PAST. A 14-point review of systems including integumentary, neurological, cardiac, pulmonary, digestive, urological, musculoskeletal, and psychiatric systems otherwise negative and noncontributory. The patient originally has LifeVest, which was subsequently discontinued when his left ventricular ejection fraction came up to the 50% to 55% range with titration of his carvedilol to 37.5 mg p.o. b.i.d. His ventricular tachycardia in the past as noted above was relatively slow ventricular tachycardia in the range of 110 to 120 beats per minute. Even the LifeVest was not symptomatic. PHYSICAL EXAMINATION: GENERAL: On examination, the patient was in no acute distress. VITAL SIGNS: Showed a blood pressure of 131/69 with a resting heart rate of 60 beats per minute (atrial paced). Respiratory rate was 11 breaths per minute. Temperature was up to 99.7 degrees Fahrenheit. HEAD AND NECK: He had a normal carotid upstroke and amplitude with no carotid bruits. I could not appreciate any cervical adenopathy or thyromegaly. CARDIOVASCULAR: There is no jugular venous distention. Auscultation showed a regular S1 and S2. He does have a 2/6 systolic ejection murmur at base of the heart and left lower sternal border. There is also a 2/6 pansystolic murmur at the apex. CHEST: He has midline trachea. He does have tenderness in the left anterior rib cage. On auscultation, however, he has good air entry bilaterally with clear lung dean with the exception of decreased air entry at the left lung base. no focal wheezes or crackles. ABDOMEN: This showed a soft and nontender abdomen with no hepatosplenomegaly. Normal bowel sounds. There are no masses or bruits. He has scars from his previous cholecystectomy. EXTREMITIES: He had no significant peripheral edema at this time. Peripheral pulses were present and equal bilaterally. EKG: There is a study from December 12, 2017 at 7:08 hours. This does showed an atrial paced rhythm at 69 beats per minute, interrupted by PVCs. The ventricular complex appears to be a paced complex as well. ADDITIONAL LABS: Other labs since admission include from December 14, 2017, electrolytes with a sodium of 147, potassium 3.6, BUN of 30, and creatinine of 1.43. Estimated GFR was 48 (improved since December 12, 2017). Other workup has included initial CK level on December 12, 2017, which was elevated at 368. However, the CK-MB fraction was only 4.9 yielding a negative MB index. Similarly, troponin I level was only 0.025 (negative). Other workup from December 14, 2017 included a CBC. The hemoglobin has dropped to 10.7 from 14.3 on initial presentation. This maybe in part related to hemodilution with IV fluids administered for intravascular volume depletion. The hematocrit was 33.1%. White blood count was 10.28 (down from 20.7 at the time of admission to hospital on December 12, 2017). The platelet count was 136,000. IMPRESSION: Overall, it was felt that Mr. Tien Hope likely had a near syncopal episode on December 12, 2017 at 2 o'clock in the morning after becoming volume depleted from his bowel prep as well as having a likely superimposed vasovagal reflex after having his bowel movement. Apparently, after standing up from using the commode, he had a near syncopal episode and fractured multiple ribs on the left side of his chest. This has been evaluated by Dr. Larios and it was felt that a chest tube placement was not necessary at this time. He does have a history of tachybrady syndrome, status post permanent pacemaker. He also has had a history of accelerated idioventricular rhythm/very slow ventricular tachycardia at 110 to 120 beats per minute when his left ventricular ejection fraction was reduced and he was wearing a Life vest. This has since been discontinued. Through careful up titration of his carvedilol while wearing the LifeVest, his left ventricular ejection fraction was noted on his latest echocardiogram to have come up to the 50% to 55% range where upon we did discontinue the LifeVest on August 21, 2017. Clinically, the patient is not in any congestive heart failure decompensation. I would concur with holding his diuretics (Lasix 10 mg p.o. every 2nd day and potassium chloride 8 mEq every 2nd day along with hydrochlorothiazide 25 mg p.o. every 2nd day). He should continue on his carvedilol 37.5 mg p.o. b.i.d. I would hold the amlodipine while his blood pressure remains borderline low. Other medications such as Xarelto can be held in the short term while he is recovering from his risk factors. It appears that he does remain in atrial paced rhythm on his telemetry log on his pacemaker. It is doubtful that the episode of near syncope was related to left ventricular tachycardia event based on the telemetry log interrogation from his pacemaker. It is unlikely to be related to a bradycardic event based on the preserved permanent pacemaker function from the interrogation on December 14, 2017. His other concurrent medical problems do include his underlying cardiomyopathy, mild coronary artery disease, mild aortic stenosis with additional valvular heart disease including trace mitral regurgitation and mild aortic regurgitation as well as tricuspid regurgitation. His blood pressure appears to be under adequate control. He does have a history of hyperlipidemia; type 2 diabetes mellitus; hypothyroidism, on replacement; renal insufficiency; obstructive sleep apnea; benign paroxysmal vertigo; history of nicotine dependence; and diarrhea. This has been evaluated by Dr. Puneet Vidal. RECOMMENDATIONS: above. Thank you once again for allowing us to participate in the care of your patient. We follow the patient intermittently and as needed with you while in hospital. It is anticipated that he maybe a candidate for transfer to a rehab facility to facilitate to help get his strength back and re-establish his ambulation. Please do not hesitate to contact us directly should there be any other new cardiac issues with Mr. Tien Hope. The assessment and recommendations were discussed with Dr. Zohreh Vidal. Job#: [id number] cc: MD RAVEN LANG DO MTDD
[2017-12-15] MEDS: FLUTICASONE PROPIONATE NASAL SPRAY NS SCH (09:01)
[2017-12-15] MEDS: BALSAM PERU/CASTOR OIL 60 GM OINT...G. TP SCH ×2 (09:01→16:43)
[2017-12-15] MEDS: HYDROCODONE/APAP 7.5MG-325MG 1 EA TAB PO PRN ×2 (09:14→16:44)
[2017-12-15] MEDS: HEPARIN SOD (PORCINE) 5,000 UNIT/ML VIAL SC SCH ×2 (09:37→21:04)
[2017-12-15] MEDS: CARVEDILOL 12.5 MG TAB PO SCH ×2 (09:37→17:00)
--- NOTE | 2017-12-15 11:49 | Diagnostic Imaging Report ---
PROCEDURE: A single AP view of the chest. COMPARISON: Patients [facility], DX, CHEST SINGLE (PORTABLE), 12/15/2017, 6:33. INDICATIONS: RIGHT RIB FRACTURE FINDINGS: See impression. IMPRESSION: 1. hypoinflated lungs. Persistent left retrocardiac density and obscuration of the left hemidiaphragm, consistent with prior left hemothorax and basal atelectasis. Atelectatic changes are also noted in the right lower lung. 2. Central venous congestion and enlarged cardiac silhouette. 3. Stable multilead right upper chest cardiac device. 4. No interval change in multiple left sided rib fractures Eugene López M.D. Dictated by: Eugene López M.D. on 12/15/2017 at 11:58 Electronically approved by: Eugene López M.D. on 12/15/2017 at 11:58
[2017-12-15] MEDS: AMLODIPINE BESYLATE 5 MG TAB PO SCH ×2 (13:02→16:44)
[2017-12-15] MEDS: ONDANSETRON HCL INJ 2 MG/ML VIAL IV PRN (17:00)
[2017-12-15] MEDS: CEFTRIAXONE SOD 1 GM VIAL IV SCH (21:03)
[2017-12-15] MEDS: PANTOPRAZOLE 40 MG 10ML VIAL IV SCH (21:03)
[2017-12-15] MEDS: SIMVASTATIN 20 MG TAB PO SCH (21:03)
[2017-12-16] VITALS (7 sets, daily range): BP systolic 130–180; BP diastolic 67–79
[2017-12-16] MEDS: ALBUTEROL/IPRATROPIUM 3 ML NEB NEB SCH ×4 (01:00→20:10)
[2017-12-16] MEDS: LEVOTHYROXINE SODIUM 50 MCG TAB PO SCH (06:05)
[2017-12-16] MEDS: HYDROMORPHONE 2MG/ML INJ IV PRN ×2 (06:05→19:20)
[2017-12-16] MEDS: SALMETEROL/FLUTICASONE 100/50 INH SCH (07:25)
--- NOTE | 2017-12-16 08:55 | Diagnostic Imaging Report ---
EXAMINATION: Chest, CHEST SINGLE (PORTABLE) INDICATION: Chest pain COMPARISON: Portable chest 12/15/2017 FINDINGS: LINES: Right chest cardiac device with leads projecting over the expected regions of the right atrium and ventricle. Heart: Normal cardiac silhouette. Vascular: The pulmonary vasculature is within normal limits. Atherosclerotic calcifications of the aortic arch. Mediastinum: No mediastinal, hilar, or axillary mass or lymphadenopathy. Lungs: No parenchymal mass. Bilateral perihilar opacifications. Pleura: No pleural effusion. No pneumothorax. Bones: No acute osseous abnormality. Degenerative changes of the thoracic spine. Soft tissues: Normal. Impression: Bilateral perihilar opacifications may represent pulmonary edema. Signed by: Dr. Jose Mock M.D. on 12/16/2017 8:52 AM
[2017-12-16] MEDS: BALSAM PERU/CASTOR OIL 60 GM OINT...G. TP SCH ×2 (09:00→17:00)
[2017-12-16] MEDS: ECONAZOLE NITRATE 1% CRM 15 GM TUBE TP SCH (09:00)
[2017-12-16] MEDS: CARVEDILOL 12.5 MG TAB PO SCH ×2 (09:00→17:00)
[2017-12-16] MEDS: AMLODIPINE BESYLATE 5 MG TAB PO SCH ×2 (09:00→17:00)
[2017-12-16] MEDS: HEPARIN SOD (PORCINE) 5,000 UNIT/ML VIAL SC SCH ×2 (09:00→21:00)
[2017-12-16] MEDS: FLUTICASONE PROPIONATE NASAL SPRAY NS SCH (09:00)
[2017-12-16] MEDS: CEFTRIAXONE SOD 1 GM VIAL IV SCH (20:55)
[2017-12-16] MEDS: PANTOPRAZOLE 40 MG 10ML VIAL IV SCH (20:55)
[2017-12-16] MEDS: SIMVASTATIN 20 MG TAB PO SCH (21:00)
[2017-12-17] VITALS: BP 135/63
[2017-12-17] MEDS: ALBUTEROL/IPRATROPIUM 3 ML NEB NEB SCH ×4 (01:28→20:22)
[2017-12-17 04:00] VITALS: BP 140/74
[2017-12-17 04:16] VITALS: BP 135/63
[2017-12-17] MEDS: HYDROMORPHONE 2MG/ML INJ IV PRN (04:48)
[2017-12-17] MEDS: LEVOTHYROXINE SODIUM 50 MCG TAB PO SCH (05:35)
[2017-12-17 07:57] LABS: BASOPHILS % 0.1 % (0.0-1.0); EOSINOPHILS # (AUTO) 0.1 (0.0-0.4); EOSINOPHILS % 0.5 % (0.0-6.0); HEMATOCRIT 31.9 % (38.2-49.6); HEMOGLOBIN 10.5 g/dL (14.0-18.0); LYMPHOCYTES % 10.6 % (18.0-39.1); MEAN CORPUSCULAR HEMOGLOBIN 30.9 pg (28-32); MEAN CORPUSCULAR HGB CONC 32.9 g/dL (31-35); MEAN CORPUSCULAR VOLUME 93.8 fL (81-99); MONOCYTES % 10.4 % (4.4-11.3); NEUTROPHILS # (AUTO) 7.2 (2.1-6.9); NEUTROPHILS % 78.2 % (38.7-80.0); PLATELET COUNT 167 x10e3/uL (140-360); RED CELL DISTRIBUTION WIDTH 13.9 % (11.7-14.4)
[2017-12-17] MEDS: CARVEDILOL 12.5 MG TAB PO SCH ×2 (08:24→10:55)
[2017-12-17 08:31] LABS: INR 0.95; PROTHROMBIN TIME 13.2 seconds (11.9-14.5)
[2017-12-17 08:34] LABS: % IRON SATURATION 9 % (15-50); IRON 27 ug/dL (65-175); TOTAL IRON BINDING CAPACITY 304 ug/dL (261-478); TRANSFERRIN 217 mg/dL (174-364)
[2017-12-17] MEDS: LIDOCAINE 5% PATCH TP SCH (09:00)
[2017-12-17] MEDS: HEPARIN SOD (PORCINE) 5,000 UNIT/ML VIAL SC SCH ×2 (09:00→20:25)
[2017-12-17] MEDS: AMLODIPINE BESYLATE 5 MG TAB PO SCH ×2 (09:00→10:56)
[2017-12-17] MEDS: ECONAZOLE NITRATE 1% CRM 15 GM TUBE TP SCH (09:00)
[2017-12-17] MEDS: FLUTICASONE PROPIONATE NASAL SPRAY NS SCH (09:00)
[2017-12-17] MEDS: BALSAM PERU/CASTOR OIL 60 GM OINT...G. TP SCH ×2 (09:00→17:00)
--- NOTE | 2017-12-17 09:01 | Diagnostic Imaging Report ---
EXAMINATION: Chest, CHEST SINGLE (PORTABLE) INDICATION: Chest pain COMPARISON: Portable chest 12/16/2017 FINDINGS: LINES: Right chest cardiac device with leads projecting over the expected regions of the right atrium and ventricle. Heart: Normal cardiac silhouette. Vascular: The pulmonary vasculature is within normal limits. Atherosclerotic calcifications of the aortic arch. Mediastinum: No mediastinal, hilar, or axillary mass or lymphadenopathy. Lungs: No parenchymal mass. No focal consolidation. Pleura: No pleural effusion. No pneumothorax. Bones: No acute osseous abnormality. Degenerative changes of the thoracic spine. Multiple left lateral rib fractures. Soft tissues: Normal. Impression: No acute radiographic abnormality. Signed by: Dr. Jose Mock M.D. on 12/17/2017 8:58 AM
[2017-12-17] MEDS: SALMETEROL/FLUTICASONE 100/50 INH SCH (09:15)
[2017-12-17 10:23] VITALS: BP 160/77
[2017-12-17] MEDS: HYDROCODONE/APAP 7.5MG-325MG 1 EA TAB PO PRN ×2 (11:56→20:20)
[2017-12-17 14:06] VITALS: BP 157/77
[2017-12-17 20:00] VITALS: BP 156/68
[2017-12-17] MEDS: PANTOPRAZOLE 40 MG 10ML VIAL IV SCH (20:45)
[2017-12-17] MEDS: SIMVASTATIN 20 MG TAB PO SCH (20:45)
[2017-12-17] MEDS: CEFTRIAXONE SOD 1 GM VIAL IV SCH (20:45)
[2017-12-18] VITALS (7 sets, daily range): BP systolic 117–166; BP diastolic 59–77
[2017-12-18] MEDS: ALBUTEROL/IPRATROPIUM 3 ML NEB NEB SCH ×4 (01:52→20:10)
[2017-12-18] MEDS: HYDROCODONE/APAP 7.5MG-325MG 1 EA TAB PO PRN ×2 (05:10→16:03)
[2017-12-18] MEDS: LEVOTHYROXINE SODIUM 50 MCG TAB PO SCH (05:10)
[2017-12-18] MEDS: FLUTICASONE PROPIONATE NASAL SPRAY NS SCH (08:45)
[2017-12-18] MEDS: LIDOCAINE 5% PATCH TP SCH (08:46)
[2017-12-18] MEDS: AMLODIPINE BESYLATE 5 MG TAB PO SCH ×2 (08:46→16:56)
[2017-12-18] MEDS: CARVEDILOL 12.5 MG TAB PO SCH ×2 (08:46→16:56)
[2017-12-18] MEDS: ECONAZOLE NITRATE 1% CRM 15 GM TUBE TP SCH (08:47)
[2017-12-18] MEDS: BALSAM PERU/CASTOR OIL 60 GM OINT...G. TP SCH ×2 (08:47→15:57)
[2017-12-18] MEDS: HEPARIN SOD (PORCINE) 5,000 UNIT/ML VIAL SC SCH ×2 (08:47→21:20)
[2017-12-18] MEDS: SALMETEROL/FLUTICASONE 100/50 INH SCH (09:00)
[2017-12-18] MEDS: ONDANSETRON HCL INJ 2 MG/ML VIAL IV PRN (19:05)
[2017-12-18] MEDS: PANTOPRAZOLE 40 MG 10ML VIAL IV SCH (20:18)
[2017-12-18] MEDS: CEFTRIAXONE SOD 1 GM VIAL IV SCH (20:30)
[2017-12-18] MEDS: SIMVASTATIN 20 MG TAB PO SCH (21:20)
[2017-12-19] MEDS ORDERED: HYDROCODONE/APAP 7.5MG-325MG 1 EA TAB PO PRN (02:15)
[2017-12-19] MEDS ORDERED: HYDROMORPHONE 1MG/1ML INJ IV PRN (02:15)
[2017-12-19] MEDS: ALBUTEROL/IPRATROPIUM 3 ML NEB NEB SCH ×3 (02:15→13:52)
[2017-12-19 02:16] VITALS: BP 136/62
[2017-12-19] MEDS ORDERED: HYDROMORPHONE 2MG/ML INJ IV PRN (02:30)
[2017-12-19 04:00] VITALS: BP 144/65
[2017-12-19] MEDS: LEVOTHYROXINE SODIUM 50 MCG TAB PO SCH (06:20)
[2017-12-19] MEDS: BALSAM PERU/CASTOR OIL 60 GM OINT...G. TP SCH (08:35)
[2017-12-19] MEDS: CARVEDILOL 12.5 MG TAB PO SCH (08:35)
[2017-12-19] MEDS: AMLODIPINE BESYLATE 5 MG TAB PO SCH (08:35)
[2017-12-19] MEDS: LIDOCAINE 5% PATCH TP SCH (08:35)
[2017-12-19] MEDS: ECONAZOLE NITRATE 1% CRM 15 GM TUBE TP SCH (08:35)
[2017-12-19] MEDS: FLUTICASONE PROPIONATE NASAL SPRAY NS SCH (08:35)
[2017-12-19 08:36] VITALS: BP 158/74
[2017-12-19] MEDS: HEPARIN SOD (PORCINE) 5,000 UNIT/ML VIAL SC SCH (08:37)
[2017-12-19 11:17] VITALS: BP 158/74
[2017-12-19 11:58] VITALS: BP 115/57
[2017-12-19] MEDS: ONDANSETRON HCL INJ 2 MG/ML VIAL IV PRN (12:38)
== END 2017-12-19 16:13 | DRG 199 ==
LOC: ER 06:42 → ERHOLD 08:02 → IMCU 20:28 → MED/SURG 12-15 21:55
PROC: 4B02XSZ Measurement of Cardiac Pacemaker, External Approach (ICD-10-PCS; principal; 2017-12-14)
DX: S27.0XXA Traumatic pneumothorax, initial encounter (principal); S22.5XXA Flail chest, initial encounter for closed fracture; I49.5 Sick sinus syndrome; J44.9 Chronic obstructive pulmonary disease, unspecified; I48.0 Paroxysmal atrial fibrillation; I50.9 Heart failure, unspecified; I42.9 Cardiomyopathy, unspecified; R55 Syncope and collapse; I08.3 Combined rheumatic disorders of mitral, aortic and tricuspid valves; S27.1XXA Traumatic hemothorax, initial encounter; G47.33 Obstructive sleep apnea (adult) (pediatric); Z95.0 Presence of cardiac pacemaker; E78.5 Hyperlipidemia, unspecified; I25.10 Atherosclerotic heart disease of native coronary artery without angina pectoris; E03.9 Hypothyroidism, unspecified; Z79.01 Long term (current) use of anticoagulants; E86.9 Volume depletion, unspecified
CPT/HCPCS: 36415; 36600; 70450; 71045; 71250; 72125; 80053; 82550; 82553; 82805; 83540; 84436; 84443; 84466; 84479; 84484; 85025; 85610; 85730; 86850; 86900; 93005; 94640; 97139; 99285; J0696; J1644; J2405; J7030; J7040

== ENCOUNTER → 2017-12-21 | Outpatient (CLI) | payer OTHER ==
[~2017-12-21] MED LIST changes: +ADVAIR 100-501 EACH INH; +KETOCONAZOLE15 GM TOP; +LOVENOX60 MG/0.6 SC; +VOLTERAN TOP; +[UNRECOGNIZED DRUG - OTHER] PO; +[UNRECOGNIZED DRUG - OTHER] TOP
[2017-12-21 17:25] LABS: ANION GAP 14.7 mmol/L (8-16); BLOOD UREA NITROGEN 23 mg/dL (7-26); BUN/CREATININE RATIO 26 (6-25); CALCIUM 8.4 mg/dL (8.4-10.2); CARBON DIOXIDE 24 mmol/L (22-29); CHLORIDE 108 mmol/L (98-107); CREATININE, SERUM 0.88 mg/dL (0.72-1.25); EST GLOMERULAR FILTRATION RATE > 60 ML/MIN (60-); GLUCOSE 120 mg/dL (74-118); SODIUM 144 mmol/L (136-145)
[2017-12-21 17:29] LABS: POTASSIUM 2.7 mmol/L (3.5-5.1)
[2017-12-21 17:38] LABS: BASOPHILS % 0.3 % (0.0-1.0); EOSINOPHILS # (AUTO) 0.5 (0.0-0.4); EOSINOPHILS % 5.9 % (0.0-6.0); HEMATOCRIT 30.3 % (38.2-49.6); HEMOGLOBIN 10.5 g/dL (14.0-18.0); LYMPHOCYTES # (AUTO) 1.3 (1.0-3.2); LYMPHOCYTES % 16.2 % (18.0-39.1); MEAN CORPUSCULAR HEMOGLOBIN 31.8 pg (28-32); MEAN CORPUSCULAR HGB CONC 34.7 g/dL (31-35); MEAN CORPUSCULAR VOLUME 91.8 fL (81-99); MONOCYTES # (AUTO) 0.7 (0.2-0.8); MONOCYTES % 9.1 % (4.4-11.3); NEUTROPHILS # (AUTO) 5.3 (2.1-6.9); NEUTROPHILS % 68.1 % (38.7-80.0); PLATELET COUNT 211 x10e3/uL (140-360); RED CELL DISTRIBUTION WIDTH 13.9 % (11.7-14.4)
== END ==
LOC: NPA 11:30
DX: Z02.89 Encounter for other administrative examinations (principal)
CPT/HCPCS: 36415; 80048; 85025

== ENCOUNTER 2018-01-16 23:24 | Inpatient (IN) | payer MEDICARE ==
[~2018-01-16] VITALS: Ht 177.8 cm; Wt 80.4 kg
--- OUTSIDE RECORDS SUMMARY | 2018-01-16 23:27 | XMS REPORT | Continuity of Care Document ---
Author Author [facility] Organization [facility] Address [address] [place] [address] Phone Unavailable Care Team Providers Care Access Specialist Name Role Phone FABIAN RAMOS DO PCP Insurance Providers Guarantor Tien Hope Address [address] [place] [address] Email [email or web address] Payer [employer] Medicare Replacement Policy Number [id number] Subscriber's Name Tien Hope Relationship 18 Self / Same As Patient Group Number [id number] Group Name [facility] 3 Effective Date 12 Advance Directives Directive Response Recorded Date/Time Does the patient have an advance directive? No 01/07/18 6:42pm If yes, is advance directive on file with [facility]? No 12/13/17 12:29am If not on file with [facility] will patient provide a copy? No 12/13/17 12:29am Do you have a Directive to Physician? No 01/07/18 3:19pm Do you have a Medical Power of Cat Operator? No 01/07/18 3:19pm Do you have an out of hospital Do Not Resuscitate Order? No 01/07/18 3:19pm Do you have any special needs we should be aware of? No 01/07/18 3:19pm Do you have a support person here with you today? Yes 01/07/18 3:19pm Did patient receive Notice of Privacy Practices? Yes 01/07/18 3:19pm Did patient receive patient rights and responsibilities? Yes 01/07/18 3:19pm Problems Medical Problem Onset Date Status Fecal retention Unknown Flail chest Unknown Gallstones Unknown Hemothorax on left Unknown Hypokalemia Unknown Pancreatitis Unknown Pneumothorax Unknown Rectal bleeding Unknown Syncope Unknown Urinary retention Unknown Medications Current Home Medications Medication Dose Units Route Directions Days Qty Instructions Start Date Carvedilol 12.5 Mg Tablet 50 Mg Oral Daily 60 Tab Fluticasone/Salmeterol (Advair 100-50 Diskus) 1 Each Disk.w.dev 1 Inh Inhalation Daily Furosemide 40 Mg Tablet 10 Mg Oral Every 2 Days 30 Tab Hydrochlorothiazide 25 Mg Tablet 25 Mg Oral Every Other Day 30 Tab Levothyroxine Sodium 50 Mcg Tablet 50 Mcg Oral Daily 30 Tab Mu-Vits-Min Th/Lycopene/Lutein (Centrum Silver Tablet) 1 Each Tablet 1 Tab Oral Daily Omeprazole 40 Mg Capsule.dr 40 Mg Oral Bedtime Potassium Chloride 10 Meq Tab.er.prt 40 Meq Oral Daily Rosuvastatin Calcium (Crestor) 10 Mg Tab 10 Mg Oral Bedtime THERAPEUTICALLY SUBSTITUTED WITH SIMVASTATIN 40MG Past Home Medications Medication Directions Ordered Status Amiodarone Hcl 200 Mg Tablet, 200 Mg Oral Daily Discontinued Amlodipine Besylate 5 Mg Tablet, 2.5 Mg Oral Every 2 Days Discontinued Amlodipine Besylate 5 Mg Tablet, 2.5 Mg Oral Daily Discontinued Aspirin 81 Mg Tab.chew, 81 Mg Oral Daily Discontinued Aspirin (Aspir 81) 81 Mg Tablet.dr, 81 Mg Oral Daily Discontinued Bromocriptine Mesylate (Cycloset) 0.8 Mg Tablet, 2 Tab Oral Every Morning Discontinued Bromocriptine Mesylate (Cycloset) 0.8 Mg Tablet, 2 Tab Oral A Discontinued Clobeta Cream , Discontinued Clobetasol Propionate 1 Ea/15 Gm Cr, Topically Discontinued Dextran 70/Hypromellose (Artificial Tears) 1 Each Droperette, Ophthalmic Daily Discontinued Diclofenac Sodium (Voltaren) 100 Gm Gel..gram., 1 Dose Topically As Needed Discontinued Enoxaparin Sodium (Lovenox) 60 Mg/0.6 Ml Inj, 85 Mg Subcutaneously Twice A Day Discontinued Fenofibrate 160 Mg Tablet, 160 Mg Oral Daily Discontinued Fexofenadine Hcl (Allergy Relief) 60 Mg Tablet, 1 Tab Oral Daily Discontinued Fluticasone Propionate 16 Gm Hulbert.susp, 1 Spr Nasal Daily Discontinued Fluticasone Propionate (Flovent Diskus) 50 Mcg Disk.w.dev, 1 Spr Nasal Daily Discontinued Fluticasone/Salmeterol (Advair Hfa 115-21 Mcg Inhaler) 12 Gm Hfa.aer.ad, 1 Inh Inhalation As Needed as needed for Shortness Of Breath Discontinued Fluticasone/Salmeterol (Advair 250-50 Diskus) 1 Each Disk.w.dev, 1 Spr Inhalation As Needed Discontinued Folic Acid/Multivits-Min/Lut (Centrum Silver Chewable Tablet) 1 Each Tab.chew, 1 Tab Oral Daily Discontinued Glimepiride 1 Mg Tablet, 1 Mg Oral 1/2 Qd Discontinued Hydrochlorothiazide 25 Mg Tablet, 25 Mg Oral Daily Discontinued Ketoconazole 15 Gm Cream..g., 1 Applic Topically Daily Discontinued Levothyroxine Sodium 50 Mcg Tablet, 50 Mcg Oral Daily Discontinued Loratadine 10 Mg Tablet, 10 Mg Oral Daily Discontinued Loratadine 10 Mg Tablet, 10 Mg Oral Daily Discontinued Losartan 6MG Qd , Discontinued Losartan Potassium (Cozaar) 25 Mg Tablet, 50 Mg Oral Daily Discontinued Metoprolol Tartrate 50 Mg Tablet, 50 Mg Oral Bedtime Discontinued Mu-Vits-Min Th/Lycopene/Lutein (Centrum Silver Tablet) 1 Each Tablet, Daily Discontinued Niacin Bid , 500 Discontinued Manor-3 Acid Ethyl Esters (Lovaza) 1 Gm Capsule, 2 Cap Oral Twice A Day Discontinued Manor-3 Acid Ethyl Esters (Lovaza) 1 Gm Capsule, 1 Gm Oral Twice A Day Discontinued Manor-3 Fatty Acids/Fish Oil (Fish Oil 1,000 Mg Capsule) 1 Each Capsule, 1 Cap Oral 8 X Day Discontinued Omeprazole 40 Mg Capsule.dr, 40 Mg Oral Daily Discontinued Pioglitazone Hcl (Actos) 15 Mg Tablet, 15 Mg Oral Daily Discontinued Polyethylene Glycol 3350 (Polyethylene Glycol) 527 Gm Powder, Daily Discontinued Propylene Glycol (Systane Balance) 10 Ml Drops, 1 Drop Each Eye Daily Discontinued Propylene Glycol/Peg 400 (Systane Liquid Gel Eye Drops) 15 Ml Drp.lq.gel, 1 Drop Each Eye Discontinued Rivaroxaban (Xarelto) 20 Mg Tablet, 20 Mg Oral Daily Discontinued Rosuvastatin Calcium (Crestor) 10 Mg Tab, Discontinued Rosuvastatin Calcium (Crestor) 10 Mg Tab, 10 Mg Oral Daily Discontinued Rosuvastatin Calcium (Crestor) 10 Mg Tablet, 10 Mg Oral Daily Discontinued Saxagliptin Hcl (Onglyza) 5 Mg Tablet, 5 Mg Oral Daily Discontinued Saxagliptin Hcl (Onglyza) 5 Mg Tablet, 5 Mg Oral Daily Discontinued Saxagliptin Hcl (Onglyza) 5 Mg Tablet, 5 Mg Oral Daily Discontinued Silodosin (Rapaflo) 8 Mg Capsule, 8 Mg Oral Bedtime Discontinued Silodosin (Rapaflo) 8 Mg Capsule, 8 Mg Oral Daily Discontinued Silodosin (Rapaflo) 8 Mg Capsule, Discontinued Silodosin (Rapaflo) 8 Mg Capsule, 8 Mg Oral Daily Discontinued Tamsulosin Hcl 0.4 Mg Cap.er.24h, 0.4 Mg Oral Bedtime Discontinued Tramadol Hcl/Acetaminophen (Ultracet Tablet) 1 Each Tablet, 1 Tab Oral As Needed Discontinued Tramadol/Acetaminophen (Tramadol-Acetaminophn 37.5-325) 1 Ea Tab, 2 Tab Oral Every 6 Hours as needed for Pain Discontinued Triamcinolone/Emollient Cmb#45 (Pediaderm Ta 0.1% Kit) 115 Gm Cream..g., 1 Transderm Twice A Day Discontinued Triamcinolone/Emollient Cmb#45 (Pediaderm Ta 0.1% Kit) 115 Gm Cream..g., 1 Dose Topically Daily Discontinued Trmincilone 1% , 1 Applic Topically Daily Discontinued Valcepa , 38 Mg Oral Twice A Day Discontinued Volteran 1% , Topically Daily Discontinued Social History Social History Problem Response Recorded Date/Time Onset Date Status Hx Psychiatric Problems No 01/07/2018 6:42pm Not Applicable Not Applicable Hx Eating Disorder No 01/07/2018 6:42pm Not Applicable Not Applicable Hx Substance Use Disorder No 01/07/2018 6:42pm Not Applicable Not Applicable Hx Depression No 01/07/2018 6:42pm Not Applicable Not Applicable Hx Alcohol Use No 01/07/2018 6:42pm Not Applicable Not Applicable Hx Substance Use Treatment No 01/07/2018 6:42pm Not Applicable Not Applicable Hx Physical Abuse No 01/07/2018 6:42pm Not Applicable Not Applicable Smoking Status Start Date Stop Date Current every day smoker Hospital Discharge Instructions No hospital discharge instruction information available. Plan of Care Discharge Date 01/13/18 2:33pm Disposition HOME, SELF-CARE Instructions/Education Provided Syncope Hypokalemia Prescriptions See Medication Section Additional Instructions/Education Follow up with Dr. Ramos in one week. Functional Status Query Response Date Recorded Assistive Devices None January 07, 2018 6:35pm Ambulation Ability Independent January 07, 2018 6:35pm Toileting Ability Independent January 12, 2018 5:16pm Allergies, Adverse Reactions, Alerts Allergen Type Severity Reaction Status Last Updated Fentanyl Allergy Intermediate seizure Active 01/07/18 Immunizations No immunization information available. Vital Signs Acute Vital Signs Vital Response Date/Time Temperature (Fahrenheit) 97.0 degrees F (97.6 - 99.5) 01/13/2018 12:00pm Pulse Pulse Rate (adult) 58 bpm (60 - 90) 01/13/2018 2:08pm Respiratory Rate 18 bpm (12 - 24) 01/13/2018 2:08pm Blood Pressure 115/62 mm Hg 01/13/2018 12:00pm Height 5 ft 10 in 01/07/2018 2:15pm Weight 187.56 lb 01/11/2018 1:09am Body Mass Index 26.9 kg/m^2 01/11/2018 1:09am Results Laboratory Results Test Name Result Units Flags Reference Collection Date/Time Result Date/ Time Comments Band Neutrophils % 1 % 04/24/2017 6:00am 04/24/2017 7:29am Reactive Lymphocytes 2 04/24/2017 6:00am 04/24/2017 7:29am Anisocytosis SLIGHT 04/24/2017 6:00am 04/24/2017 7:29am Urine Color YELLOW YELLOW 04/25/2017 11:55am 04/25/2017 12:07pm Urine Clarity CLEAR CLEAR 04/25/2017 11:55am 04/25/2017 12:07pm Urine Specific [place] 1.015 1.010-1.025 04/25/2017 11:55am 2016 12:07pm Urine pH 5 5 - 7 04/25/2017 11:55am 04/25/2017 12:07pm Urine Leukocyte Esterase NEGATIVE NEGATIVE 04/25/2017 11:55am 2016 12:07pm Urine Nitrite NEGATIVE NEGATIVE 04/25/2017 11:55am 04/25/2017 12: 07pm Urine Protein NEGATIVE NEGATIVE 04/25/2017 11:55am 04/25/2017 12: 07pm Urine Glucose (UA) NEGATIVE NEGATIVE 04/25/2017 11:55am 04/25/2017 12 :07pm Urine Ketones NEGATIVE NEGATIVE 04/25/2017 11:55am 04/25/2017 12: 07pm Urine Urobilinogen 4 mg/dL H 0.2 - 1 04/25/2017 11:55am 04/25/2017 12: 07pm Urine Bilirubin NEGATIVE NEGATIVE 04/25/2017 11:55am 04/25/2017 12: 07pm Urine Blood TRACE H NEGATIVE 04/25/2017 11:55am 04/25/2017 12:07pm Urine WBC NONE /HPF 0-5 04/25/2017 11:55am 04/25/2017 12:26pm Urine RBC 0-5 /HPF 0-5 04/25/2017 11:55am 04/25/2017 12:26pm Urine Bacteria NONE /HPF NONE 04/25/2017 11:55am 04/25/2017 12:26pm Urine Epithelial Cells RARE /LPF NONE 04/25/2017 11:55am 04/25/2017 12: 26pm Urine Mucus FEW H RARE 04/18/2017 8:40pm 04/18/2017 10:43pm Magnesium Level 1.6 MG/DL 1.3-2.1 04/21/2017 3:45pm 04/21/2017 4:33pm Amylase Level 74 U/L 25-125 04/24/2017 6:10am 04/24/2017 7:18am Lipase 29 U/L 8-78 04/21/2017 6:34am 04/21/2017 7:31am Differential Total Cells Counted 100 12/15/2017 5:55am 12/15/2017 7 :49am Neutrophils % (Manual) 74 % 40-74 12/15/2017 5:55am 12/15/2017 7:49am Lymphocytes % (Manual) 10 % L 19-48 12/15/2017 5:55am 12/15/2017 7:49am Monocytes % (Manual) 14 % H 3.4-9.0 12/15/2017 5:55am 12/15/2017 7:49am Eosinophils % (Manual) 1 % 0-7 12/15/2017 5:55am 12/15/2017 7:49am Basophils % (Manual) 1 % 0-1.5 12/15/2017 5:55am 12/15/2017 7:49am Platelet Estimate SLIGHTLY DECREASED 12/15/2017 5:55am 12/15/2017 7 :49am Platelet Morphology Comment FEW LARGE 12/15/2017 5:55am 12/15/2017 7:49am Hypochromasia SLIGHT 12/15/2017 5:55am 12/15/2017 7:49am Red Cell Morphology Comment NORMAL 12/15/2017 5:55am 12/15/2017 7: 49am Iron Level 27 ug/dL L 65-175 12/17/2017 7:00am 12/17/2017 8:35am Total Iron Binding Capacity 304 ug/dL 261-478 12/17/2017 7:00am 2017 8:35am Percent Iron Saturation 9 % L 15-50 12/17/2017 7:00am 12/17/2017 8:35am Transferrin 217 mg/dL 174-364 12/17/2017 7:00am 12/17/2017 8:35am Free Thyroxine Index 2.4669 1.4-3.8 12/13/2017 5:50am 12/13/2017 9: 36am Thyroxine (T4) 8.34 ug/dL 4.5-10.9 12/13/2017 5:50am 12/13/2017 9:36am Triiodothyronine (T3) Uptake 29.58 % 22.5-37.0 12/13/2017 5:50am 2017 9:36am Thyroid Stimulating Hormone (TSH) 0.360 uIU/mL 0.350-4.940 12/13/2017 5: 50am 12/13/2017 9:36am Arterial Blood pH 7.38 7.31-7.41 12/13/2017 11:10am 12/13/2017 12: 42pm Arterial Blood Partial Pressure CO2 40 mmHg L 41-51 12/13/2017 11:10am 12/13/2017 12:42pm Arterial Blood Partial Pressure O2 82 mmHg 80-105 12/13/2017 11:10am 12:42pm Arterial Blood HCO3 24 mmol/L 23-28 12/13/2017 11:10am 12/13/2017 12: 42pm Arterial Blood Base Excess -1.0 mmol/L -2 - 3 12/13/2017 11:10am 2017 12:42pm Arterial Blood Oxygen Saturation 96.0 % 95-98 12/13/2017 11:10am 2017 12:42pm White Blood Count 7.36 x10e3/uL 4.8-10.8 01/08/2018 5:44am 01/08/2018 6 :16am Red Blood Count 3.96 x10e6/uL L 4.3-5.7 01/08/2018 5:44am 01/08/2018 6: 16am Hemoglobin 11.9 g/dL L 14.0-18.0 01/08/2018 5:44am 01/08/2018 6:16am Hematocrit 35.7 % L 38.2-49.6 01/08/2018 5:44am 01/08/2018 6:16am Mean Corpuscular Volume 90.2 fL 81-99 01/08/2018 5:44am 01/08/2018 6: 16am Mean Corpuscular Hemoglobin 30.1 pg 28-32 01/08/2018 5:44am 01/08/2018 6:16am Mean Corpuscular Hemoglobin Concent 33.3 g/dL 31-35 01/08/2018 5:44am 01/08/2018 6:16am Red Cell Distribution Width 13.9 % 11.7-14.4 01/08/2018 5:44am 2017 6:16am Platelet Count 185 x10e3/uL 140-360 01/08/2018 5:44am 01/08/2018 6: 16am Neutrophils (%) (Auto) 60.2 % 38.7-80.0 01/08/2018 5:44am 01/08/2018 6: 16am Lymphocytes (%) (Auto) 21.9 % 18.0-39.1 01/08/2018 5:44am 01/08/2018 6: 16am Monocytes (%) (Auto) 12.5 % H 4.4-11.3 01/08/2018 5:44am 01/08/2018 6: 16am Eosinophils (%) (Auto) 5.0 % 0.0-6.0 01/08/2018 5:44am 01/08/2018 6: 16am Basophils (%) (Auto) 0.3 % 0.0-1.0 01/08/2018 5:44am 01/08/2018 6:16am IM GRANULOCYTES % 0.1 % 0.0-1.0 01/08/2018 5:44am 01/08/2018 6:16am Neutrophils # (Auto) 4.4 2.1-6.9 01/08/2018 5:44am 01/08/2018 6:16am Lymphocytes # (Auto) 1.6 1.0-3.2 01/08/2018 5:44am 01/08/2018 6:16am Monocytes # (Auto) 0.9 H 0.2-0.8 01/08/2018 5:44am 01/08/2018 6:16am Eosinophils # (Auto) 0.4 0.0-0.4 01/08/2018 5:44am 01/08/2018 6:16am Basophils # (Auto) 0.0 0.0-0.1 01/08/2018 5:44am 01/08/2018 6:16am Absolute Immature Granulocyte (auto 0.01 x10e3/uL 0-0.1 01/08/2018 5: 44am 01/08/2018 6:16am Prothrombin Time 13.3 seconds 11.9-14.5 01/07/2018 3:00pm 01/07/2018 4: 00pm Prothromb Time International Ratio 1.09 01/07/2018 3:00pm 2017 4:00pm Oral Anticoagulant Therapy INR Values: 1. Low Intensity Therapy 1.5 - 2.0 2. Moderate Intensity Therapy 2.0 - 3.0 3. High Intensity Therapy(1) 2.5 - 3.5 4. High Intensity Therapy(2) 3.0 - 4.0 5. Panic Value INR > 5.0 Activated Partial Thromboplast Time 25.9 seconds 23.8-35.5 01/07/2018 3: 00pm 01/07/2018 4:00pm Sodium Level 143 mmol/L 136-145 01/08/2018 6:28pm 01/08/2018 7:21pm Potassium Level 3.5 mmol/L # 3.5-5.1 01/08/2018 6:28pm 01/08/2018 7:21pm Chloride Level 110 mmol/L H 98-107 01/08/2018 6:28pm 01/08/2018 7:21pm Carbon Dioxide Level 23 mmol/L 22-01/08/2018 6:28pm 01/08/2018 7: 21pm Anion Gap 13.5 mmol/L 8-16 01/08/2018 6:28pm 01/08/2018 7:21pm Blood Urea Nitrogen 20 mg/dL 06-0701/08/2018 6:01/08/2018 7:21pm Creatinine 1.25 mg/dL 0.72-1.25 01/08/2018 6:28pm 01/08/2018 7:21pm BUN/Creatinine Ratio 16 05-0701/08/2018 6:28pm 01/08/2018 7:21pm Estimat Glomerular Filtration Rate 56 ML/MIN L 60- 01/08/2018 6:28pm 7:21pm Ranges were taken from the National Kidney Disease Education Program and the National Kidney Foundation literature. Reference ranges: 60 or greater: Normal 16-59 (for 3 consecutive months): Chronic kidney disease 15 or less: Kidney failure Glucose Level 126 mg/dL H 74-118 01/08/2018 6:28pm 01/08/2018 7:21pm Calcium Level 8.7 mg/dL 8.4-10.2 01/08/2018 6:28pm 01/08/2018 7:21pm Bedside Glucose 100 mg/dL 70-120 01/12/2018 8:09pm 01/12/2018 8:21pm Meter ID: [id number] Total Bilirubin 0.8 mg/dL 0.2-1.2 01/07/2018 3:00pm 01/07/2018 4:03pm Aspartate Amino Transf (AST/SGOT) 26 IU/L 5-34 01/07/2018 3:00pm 2017 4:03pm Alanine Aminotransferase (ALT/SGPT) 15 IU/L 0-55 01/07/2018 3:00pm 4:03pm Total Protein 7.9 g/dL 6.5-8.1 01/07/2018 3:00pm 01/07/2018 4:03pm Albumin 3.7 g/dL 3.5-5.0 01/07/2018 3:00pm 01/07/2018 4:03pm Globulin 4.2 g/dL H 2.3-3.5 01/07/2018 3:00pm 01/07/2018 4:03pm Albumin/Globulin Ratio 0.9 0.8-2.0 01/07/2018 3:00pm 01/07/2018 4: 03pm Alkaline Phosphatase 148 IU/L 40-150 01/07/2018 3:00pm 01/07/2018 4: 03pm B-Type Natriuretic Peptide 32.3 pg/mL 0-100 01/07/2018 3:00pm 2017 4:18pm Creatine Kinase 60 IU/L 30-200 01/07/2018 3:00pm 01/07/2018 4:03pm Creatine Kinase MB 1.10 ng/mL 0-5.0 01/07/2018 3:00pm 01/07/2018 4: 14pm Troponin I 0.016 ng/mL 0-0.300 01/07/2018 3:00pm 01/07/2018 4:14pm Stool Lactoferrin (LAB) POSITIVE H NEGATIVE 01/12/2018 6:04pm 2017 6:59pm Testing on stool aspirate specimens is outside franchise sales manager claims since specimen type not validated on this assay. Clostridium Difficile Toxin A & B NEGATIVE NEGATIVE 01/12/2018 6:04pm 01/12/2018 9:06pm Testing on stool aspirate specimens is outside franchise sales manager claims since specimen type not validated on this assay. Microbiology Results Procedure Source Organism/Result Collection Date/Time Result Date/Time Result Status Blood Culture Blood NO GROWTH AFTER 5 DAYS, FINAL REPORT 04/25/2017 11: 25am 04/30/2017 11:25am Final Procedures Procedure Status Date Provider(s) RESECTION OF GALLBLADDER, PERCUTANEOUS ENDOSCOPIC APPROACH Completed LOW MCLAUGHLIN MD FLUOROSCOPY OF BILI/PANCR DUCT USING L OSM CONTRAST Completed 04/21/17 LOW MCLAUGHLIN MD INSERTION OF INFUSION DEV INTO SUP VENA CAVA, PERC APPROACH Completed SHELLI WILLINGHAM MD EGD BIOPSY SINGLE/MULTIPLE Completed 11/30/17 LONNIE GUILLORY MD MEASUREMENT OF CARDIAC PACEMAKER, EXTERNAL APPROACH Completed 12/14/17 FELICIA FUENTES MD Colonoscopy with polypectomy Completed 01/12/18 LONNIE GUILLORY MD Colonoscopy with biopsy Completed 01/12/[address] of abdomen and pelvis without contrast Active 04/18/17 SHELLI WILLINGHAM MD X-ray of chest, two views Active 04/25/17 DOMINICK GUILLORY MD Computed tomography of abdomen and pelvis with contrast Active 11/03/17 RAVEN RAMOS DO Computed tomography of brain without radiopaque contrast Active 12/12/17 PIERRE AUSTIN MD Computed tomography of cervical spine without contrast Active 12/12/17 PIERRE AUSTIN MD Computed tomography of chest without contrast Active 12/12/17 GEOVANNA,PIERRE CARDENAS Computed tomography of brain without radiopaque contrast Active 01/07/18 COLIN REDMAN MD X-ray of chest, two views Active 01/07/18 COLIN REDMAN MD Encounters Encounter Location Arrival/Admit Date Discharge/Depart Date Attending Provider Discharged Inpatient [facility] 01/08/18 2:23pm 01/13/18 2:33pm DOMINICK GUILLORY MD Registered Clinic [facility] 12/21/17 11:30am DOMINICK GUILLORY MD Discharged Inpatient [facility] 12/12/17 8:02am 12/19/17 4:13pm DOMINICK GUILLORY MD Registered Surgical Day Care [facility] 11/30/17 7:22am LONNIE GUILLORY MD Registered Clinic [facility] 11/03/17 3:40pm RAVEN RAMOS DO Discharged Inpatient [facility] 04/19/17 12:48am 6:35pm DOMINICK GUILLORY MD
[2018-01-16] MEDS ORDERED: SODIUM CHLORIDE 0.9% 1000ML 1,000 ML IV ONE (23:45)
[2018-01-17] VITALS (7 sets, daily range): BP systolic 112–138; BP diastolic 60–74
[2018-01-17 00:06] LABS: BASOPHILS % 0.2 % (0.0-1.0); EOSINOPHILS # (AUTO) 0.1 (0.0-0.4); EOSINOPHILS % 1.1 % (0.0-6.0); HEMATOCRIT 41.9 % (38.2-49.6); HEMOGLOBIN 14.2 g/dL (14.0-18.0); LYMPHOCYTES # (AUTO) 1.8 (1.0-3.2); LYMPHOCYTES % 20.7 % (18.0-39.1); MEAN CORPUSCULAR HEMOGLOBIN 30.1 pg (28-32); MEAN CORPUSCULAR HGB CONC 33.9 g/dL (31-35); MONOCYTES # (AUTO) 0.9 (0.2-0.8); NEUTROPHILS % 67.7 % (38.7-80.0); PLATELET COUNT 156 x10e3/uL (140-360); RED BLOOD COUNT 4.71 x10e6/uL (4.3-5.7); RED CELL DISTRIBUTION WIDTH 13.7 % (11.7-14.4)
[2018-01-17 00:24] LABS: ALBUMIN 3.6 g/dL (3.5-5.0); ALBUMIN/GLOBULIN RATIO 0.9 (0.8-2.0); ANION GAP 19.2 mmol/L (8-16); CALCIUM 9.7 mg/dL (8.4-10.2); CREATININE, SERUM 1.52 mg/dL (0.72-1.25); POTASSIUM 3.2 mmol/L (3.5-5.1)
[2018-01-17 00:33] LABS: CREATINE KINASE MB 1.3 ng/mL (0-5.0)
--- NOTE | 2018-01-17 00:39 | Diagnostic Imaging Report ---
Exam: Head CT without contrast History: Dizziness, multiple falls Comparison studies: Multiple prior head CTs which date to 03/08/2016, most recent head CT of 01/07/2018 Technique: Axial images were obtained from the skull base to the vertex. Coronal and sagittal images reconstructed from the axial data. Intravenous contrast: None Findings: Scalp: No abnormalities. Bones: No fractures, blastic or lytic lesions. Brain sulci: Mildly prominent. Ventricles: Mild compensatory dilatation. No hydrocephalus. Extra-axial spaces: No masses, no fluid collection. Parenchyma: No mass, acute hemorrhage or acute or chronic cortical vascular insults. A few scattered hypodensities in the supratentorial white matter are nonspecific but most compatible with chronic small vessel ischemic changes. Unchanged small chronic cortical-subcortical insult along the right superior frontal sulcus with additional small chronic insults with encephalomalacia in the cerebellar hemispheres (left greater than right). Sellar/suprasellar region: No abnormalities. Craniocervical junction: Patent foramen magnum. No Chiari one malformation. Incidental findings: Atherosclerotic calcifications in the carotid siphons. IMPRESSION: No acute intracranial abnormalities. No changes from the previous head CT of 01/07/2018. Chronic findings: 1. Mild generalized volume loss. 2. Mild microvascular ischemic changes. 3. Small right frontal and bilateral cerebellar insults. Signed by: Dr. Pankaj Linares M.D. on 01/17/2018 12:35 AM
[2018-01-17 00:53] LABS: BILIRUBIN,URINE NEGATIVE (NEGATIVE); KETONES,URINE NEGATIVE (NEGATIVE); LEUKOCYTE ESTERASE ,URINE NEGATIVE (NEGATIVE); NITRITE,URINE NEGATIVE (NEGATIVE); PROTEIN,URINE DIPSTICK NEGATIVE (NEGATIVE); URINE UROBILINOGEN 0.2 mg/dL (0.2 - 1)
[2018-01-17 00:54] LABS: CLARITY,URINE CLEAR (CLEAR); COLOR,URINE YELLOW (YELLOW)
[2018-01-17 01:02] LABS: BACTERIA,URINE RARE /HPF; EPITHELIAL CELLS,URINE RARE /LPF; RBC,URINE 0-5 /HPF (0-5); WBC,URINE (MAN) 0-5 /HPF (0-5)
--- NOTE | 2018-01-17 01:06 | Diagnostic Imaging Report ---
EXAMINATION: CHEST SINGLE (PORTABLE) 01/17/2018 12:32 AM COMPARISON: 01/07/2018 INDICATION: Weakness DISCUSSION: LINES: Right chest wall pacemaker with leads in unchanged positions. LUNGS: Left basilar atelectasis. Low lung volume involving the left hemithorax. PLEURA: Small left pleural effusion is stable. HEART AND MEDIASTINUM: The cardiomediastinal silhouette is unremarkable. BONES AND SOFT TISSUES: Multiple left rib fractures, unchanged. The soft tissues are normal. IMPRESSION: 1. Stable findings in the left hemithorax with atelectasis and small left pleural effusion. 2. Developing pneumonia cannot be excluded. Signed by: Dr. Que Clifton M.D. on 01/17/2018 1:02 AM
[2018-01-17] MEDS: SODIUM CHLORIDE 0.9% 1000ML 1,000 ML IV SCH ×2 (01:11→12:00)
[2018-01-17] MEDS ORDERED: ASPIRIN 81 MG CHEW TAB PO ONE (01:15)
[2018-01-17] MEDS ORDERED: DEXTROSE 50% SYRINGE 50 ML IV PRN (01:15)
[2018-01-17] MEDS ORDERED: ONDANSETRON HCL INJ 2 MG/ML VIAL IV PRN (01:15)
[2018-01-17] MEDS: INSULIN REGULAR, HUMAN 100 UNIT/1 ML 3ML VIAL SQ SCH ×4 (07:30→20:56)
[2018-01-17] MEDS ORDERED: FUROSEMIDE 20 MG TAB PO SCH (09:00)
[2018-01-17] MEDS ORDERED: POTASSIUM CHLORIDE 20MEQ/15ML UDC PO SCH (09:00)
[2018-01-17 09:13] LABS: CREATINE KINASE MB 1.4 ng/mL (0-5.0)
--- NOTE | 2018-01-17 10:05 | Diagnostic Imaging Report ---
PROCEDURE: A single AP view of the chest. COMPARISON: Portable chest 01/17/2018. Portable chest 01/07/2018 INDICATIONS: PICC LINE PLACMENT FINDINGS: Lines/tubes: Right subclavian cardiac device with leads projecting over the expected regions of the right atrium and ventricle. Left peripherally inserted central venous catheter with tip projecting over the expected region of the superior vena cava. Lungs: The lungs are well inflated and clear. There is no evidence of pneumonia or pulmonary edema. Pleura: There is no pleural effusion or pneumothorax. Heart and mediastinum: The heart and the mediastinum are unremarkable. Bones: No acute bony abnormality. Stable left rib fractures. IMPRESSION: No acute radiographic abnormality. Dictated by: Jose Mock M.D. on 01/17/2018 at 10:05 Electronically approved by: Jose Mock M.D. on 01/17/2018 at 10:05
[2018-01-17] MEDS ORDERED: NEOMYCIN/POLYMYXIN/BACITRACIN 15 GM TUBE TOP PRN (12:15)
[2018-01-17] MEDS ORDERED: NEOMYCIN/POLYMYX/BACITR OINT 0.9 GM PKT ONE (12:26)
[2018-01-17 17:09] LABS: CREATINE KINASE MB 1.1 ng/mL (0-5.0)
[2018-01-17] MEDS ORDERED: HYDROCODONE/APAP 5MG-325MG TAB ONE (18:51)
[2018-01-17] MEDS ORDERED: HYDROCODONE/APAP 5MG-325MG TAB PO PRN (19:00)
[2018-01-17] MEDS ORDERED: NORCO 5-325 TA1 EACH PO (19:10)
[2018-01-17] MEDS ORDERED: LEVETIRACETAM500 MG PO (19:11)
[2018-01-17] MEDS ORDERED: DUONEBS INH (19:13)
[2018-01-17] MEDS ORDERED: DICYCLOMINE HCL10 MG PO (19:13)
[2018-01-17] MEDS: DICYCLOMINE HCL 10 MG CAP PO SCH (20:39)
[2018-01-17] MEDS: PANTOPRAZOLE SOD 40 MG TABEC PO SCH (20:40)
[2018-01-17] MEDS: LEVETIRACETAM 500 MG TAB PO SCH (20:40)
[2018-01-17] MEDS: SIMVASTATIN 20 MG TAB PO SCH (20:40)
[2018-01-17] MEDS ORDERED: SIMVASTATIN 40 MG TAB PO SCH (21:00)
[2018-01-17] MEDS ORDERED: CARVEDILOL 12.5 MG TAB PO SCH (21:00)
[2018-01-18] VITALS: BP_SYST 121; BP_SYST 131; BP_SYST 80; BP_DIAS 50; BP_DIAS 66; BP_DIAS 76
[2018-01-18] MEDS: ALBUTEROL/IPRATROPIUM 3 ML NEB NEB SCH ×3 (01:00→13:00)
[2018-01-18] MEDS: HYDROCODONE/APAP 5MG-325MG TAB PO PRN ×2 (01:06→21:40)
[2018-01-18] MEDS: SODIUM CHLORIDE 0.9% 1000ML 1,000 ML IV SCH ×2 (03:51→12:30)
[2018-01-18 04:00] VITALS: BP 151/75
--- NOTE | 2018-01-18 04:39 | Consultation ---
DATE OF CONSULTATION: January 18, 2018 CARDIOLOGY CONSULTATION NOTE REFERRING PHYSICIAN: Dr. Zohreh Vidal PRIMARY CARE PHYSICIAN: Dr. Raven Ramos IDENTIFICATION: This is 82-year-old gentleman well known to my service. In fact, he was seen in consultation on December 14, 2017. Please refer to my previous detailed consultation for details of his past medical history, social history, family history. In brief, he does have a history of paroxysmal atrial fibrillation. He does have [employer] dual-chamber pacemaker for tachybrady syndrome. More recently, he was seen in the clinic for evaluation of slow ventricular tachycardia resembling an accelerated idioventricular rhythm. When originally seen in the clinic, he was in congestive heart failure and had a LifeVest that he wore until we were able to up titrate his left ventricular ejection function to 50% to 55% range. The LifeVest was discontinued on August 21, 2017. His slow ventricular tachycardia was consistently in the range 110 to 120 beats per minute. There was a trigger event on LifeVest for an idioventricular rhythm in the range of 80 to 90 beats per minute on 2 separate occasions. He does have in addition known history of cardiac risk factors including type 2 diabetes mellitus, hypertension, and a smoking history. The patient did have a cardiac catheterization completed in November of 2016 showing mild aortic stenosis and known stenosis at 50% in 1 vessel. REASON FOR CONSULTATION: Evaluation of recurrent falls and dizzy headedness. HISTORY OF PRESENT ILLNESS: The patient had just been discharged home on January 12; when he started feeling unwell. He was complaining of decreased energy, lethargy, and his daughter admitted that he was having very minimal oral intake. He would subside on eating a single egg the whole day. His diarrhea had improved. Apparently, he had failure to thrive. While walking to the mailbox on January 16, 2018, he felt tired and felt lightheaded. In fact, he felt lightheaded even before he started to walk. He walked a distance of approximately 100 feet to his mailbox. On this occasion, he had 3 separate falls. He states he did not have tunnel vision nor did vision, but he was not using his walker either and although he tried to break his fall, he did skinned his elbow on the way down. There is no head trauma. He was brought to the hospital for further evaluation. Since admission despite IV fluids, he has continued to have postural hypotension even on day of assessment. His blood pressure was 131/76 supine with heart rate of 65 beats per minute. On sitting was 121/66, but on standing he dropped to 80/50 with heart rate of 63 beats per minute. There did not appear to be a reflex tachycardia response. The patient already had his carvedilol reduced from 37.5 mg p.o. b.i.d. to 25 mg p.o. b.i.d. at time of discharge from hospital. At this point, he is not experiencing as much diarrhea as previous. He did have completion of his colonoscopy and resection of several polyps, but no obvious sites of bleeding. The colonoscopy was completed on January 19, 2018. He does not have any active chest pain or dyspnea. His daughter states that unless he is taking the Lasix 10 mg every second day with Dyazide every second day, he does accumulate fluid and edema in his lower extremities. At night, typically he does not have any PND or orthopnea. For his past medical history, past surgical history, social history, and family history, please refer to my detailed consultation note from December 14, 2017. ALLERGIES: HE HAS STATED ALLERGIES TO BYSTOLIC, ANTARA, AND HYZAAR ALL WHICH CAUSED SKIN IRRITATION. MEDICATIONS: Please see the MAR. REVIEW OF SYSTEMS: A 14-point review of systems including integumentary, neurological, cardiac, pulmonary, digestive, urological, musculoskeletal, and psychiatric as well as constitutional systems otherwise negative and noncontributory. He does have history of COPD. He also had adverse reaction to Crestor in the past. We do know that his left ventricular ejection fraction was up to 50% to 55% with up titration of his carvedilol. Unfortunately, this was not tolerated due to separation of his reflex tachycardia when he stands up and also because of overt postural hypotension. Part of this may be related to his nutritional status as well since according to his daughter he has poor oral intake. PHYSICAL EXAMINATION: GENERAL: On examination, the patient was in no acute distress. VITAL SIGNS: Showed a blood pressure of 130/67, resting heart rate 60 beats per minute. He does have significant postural hypotension when he stands up at bedside. Respiratory rate was 20 breaths per minute. He is afebrile. HEAD AND NECK: He had a normal carotid upstroke and amplitude with no carotid bruits. I could not appreciate any cervical adenopathy or thyromegaly. CARDIOVASCULAR: There is no jugular venous distention. Auscultation showed a regular S1 and S2. He does have a 2/6 systolic ejection murmur at base of the heart and left lower sternal border. There is also a 2/6 diastolic murmur in the apex. CHEST: He had a midline trachea. His chest exam was clear to auscultation and percussion except for decreased air entry at the left lung base. I could not appreciate any focal wheezes or crackles. ABDOMEN: He has soft and nontender abdomen with no hepatosplenomegaly. Normal bowel sounds. There are no abnormal masses or bruits. He has scars from his previous cholecystectomy. EXTREMITIES: At this point in time, he does not have significant peripheral edema. There is only trace edema bilaterally. EKG: We do have 12-lead EKG that was completed on January 16, 2018. This showed an A-V sequential paced rhythm at 60 beats per minute. ADDITIONAL LABS: Additional labs included CBC from January 16, 2018. He is not anemic with hemoglobin 14.2, hematocrit 41.9%, white blood count of 8.89, and platelet count 156,000. His serum chemistry, this showed a CK level of 32 from January 17, 2018 at 0845 and a CK level at 1614 hours from January 17 was 26. Both these were within normal limits. Similarly, troponin I levels were 0.036 and 0.029 respectively (within normal limits). It does not appear that we have additional labs at this stage. IMPRESSION: Overall, it is felt that Mr. Tien Hope had just recently on January 13, 2018 sustained a fall with multiple fractures in his left ribs. He had a similar history of falls on October 25, 2017 during which he had fallen on the left arm and sustained severe abrasions. At this point in time, he was admitted on January 16, 2018 with 3 falls in walking to the mailbox (a matter of 100 feet). Contributing factors to the falls do include his nutritional status. I will check serum albumin and protein. Since he has decreased p.o. intake and failure to thrive, other options for improving nutritional status can be considered such as Ensure or if need be tube feedings. The patient may have a flat affect as well and there is concern about possible underlying depression contributing to his decreased oral intake and activity. Other contributing factors do include a recognized history of significant postural hypotension. On the other hand, if we do encourage fluids, he does have tendency for peripheral edema. One solution might be to administer thigh-high UMAIR stockings when he is ambulatory. I would also suggest using a walker to avoid a risk of falling and sustaining more significant injury. We did interrogate his pacemaker. There were no recordings of any tachyarrhythmias and no recordings of any pacemaker malfunction. The pacemaker appears to be functioning normally when checked on January 17, 2018. Mr. Hope does have a history of cardiomyopathy in the past. I will reduce the carvedilol to 12.5 mg p.o. b.i.d. in light of his significant postural hypotension and reflex tachycardia with dropping blood pressure. Nevertheless, we would not need to repeat the echocardiogram at a later date. I would in the interim encourage p.o. intake, use of thigh-high UMAIR stockings, and attempt to minimize his risk of fall with use of walker. I will also check on his oncotic pressure with serum albumin and protein as mentioned above. Other concurrent problems include: 1. Background history of tachybrady syndrome, status post permanent pacemaker. 2. 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 3. He has underlying cardiomyopathy. 4. Mild coronary artery disease. 5. Mild aortic stenosis with trace mitral and mild aortic regurgitation as well as tricuspid regurgitation. 6. History of hypertension in the past. 7. History of hyperlipidemia. 8. Type 2 diabetes mellitus. 9. Hypothyroidism, on replacement. 10. Renal insufficiency. 11. Obstructive sleep apnea. 12. Benign positional vertigo. 13. History of nicotine dependence. 14. History of diarrhea, following assessment by Dr. Puneet Vidal. RECOMMENDATIONS: As above. Will follow up with the patient within 1 week's time. Thank you once again for allowing us to participate in the care of your patient. Job#: [id number] cc:MD RAVEN LANG DO
[2018-01-18] MEDS: LEVOTHYROXINE SODIUM 50 MCG TAB PO SCH (06:00)
[2018-01-18 07:14] LABS: BASOPHILS % 0.3 % (0.0-1.0); EOSINOPHILS # (AUTO) 0.4 (0.0-0.4); HEMATOCRIT 37.1 % (38.2-49.6); HEMOGLOBIN 12.6 g/dL (14.0-18.0); LYMPHOCYTES # (AUTO) 1.9 (1.0-3.2); LYMPHOCYTES % 21.6 % (18.0-39.1); MEAN CORPUSCULAR HEMOGLOBIN 30.2 pg (28-32); MONOCYTES # (AUTO) 0.9 (0.2-0.8); MONOCYTES % 10.7 % (4.4-11.3); NEUTROPHILS # (AUTO) 5.3 (2.1-6.9); NEUTROPHILS % 62.2 % (38.7-80.0); PLATELET COUNT 127 x10e3/uL (140-360); RED BLOOD COUNT 4.17 x10e6/uL (4.3-5.7); RED CELL DISTRIBUTION WIDTH 14.1 % (11.7-14.4)
[2018-01-18] MEDS: INSULIN REGULAR, HUMAN 100 UNIT/1 ML 3ML VIAL SQ SCH ×4 (07:30→21:00)
[2018-01-18 07:58] LABS: ALANINE AMINOTRANSFERASE 12 IU/L (0-55); ALBUMIN/GLOBULIN RATIO 0.9 (0.8-2.0); ALKALINE PHOSPHATASE 138 IU/L (40-150); ANION GAP 13.7 mmol/L (8-16); BLOOD UREA NITROGEN 19 mg/dL (7-26); BUN/CREATININE RATIO 17 (6-25); CALCIUM 8.7 mg/dL (8.4-10.2); CARBON DIOXIDE 24 mmol/L (22-29); CHLORIDE 108 mmol/L (98-107); CREATININE, SERUM 1.11 mg/dL (0.72-1.25); EST GLOMERULAR FILTRATION RATE > 60 ML/MIN (60-); GLUCOSE 104 mg/dL (74-118); SODIUM 143 mmol/L (136-145)
[2018-01-18 08:00] VITALS: BP 155/78
[2018-01-18 08:00] LABS: POTASSIUM 2.7 mmol/L (3.5-5.1)
--- NOTE | 2018-01-18 08:39 | Operative Report ---
DATE OF PROCEDURE: January 17, 2018 INTERROGATION OF DUAL-CHAMBER PACEMAKER INDICATIONS: Mr. Tien Hope does have known history of tachybrady syndrome as well as underlying cardiomyopathy and paroxysmal atrial fibrillation. He had presented with 3 falls associated with dizziness on January 16, 2018. We endeavored to interrogate his pacemaker to see if there is any evidence of pacemaker malfunction or pacemaker issues that would contribute to his falls. We also did endeavor to check his tachyarrhythmia log to see if there were any episodes. This is completed in conjunction with [employer] fellow field marketing representative. RESULTS: The patient appeared to be atrial paced 90% of the time and ventricular paced approximately 90% of the time. Interrogation of the leads showed that they were intact. The sensed P wave was more than 1.5 mV with a pacing threshold of 0.6 V at 0.5 msec pulse width. Pacing impedance was 720 ohms. For the right ventricular lead, the sensed R wave was 6.0 mV with a pacing threshold of 0.7 V at 0.4 msec pulse width. Pacing impedance of 540 ohms. The battery status showed that time to explant was 1.5 years. We do have a magnet rate of 100 beats per minute. Battery status was "good." The patient also had review of his tachyarrhythmia log. There are no episodes of ventricular or supraventricular tachyarrhythmias noted on his arrhythmia log. IMPRESSIONS 1. Appropriate dual-chamber pacemaker function. Estimated time to explant was 1.5 years, magnet rate of 100 beats per minute. 2. No evidence of tachyarrhythmias of ventricular or ventricular etiology on the arrhythmia log. Overall, it is felt that Mr. Hope's dizziness and lightheadedness leading to his fall was unlikely to be related to tachy or bradyarrhythmia under these circumstances. We do know that he has significant postural hypotension which may be directly bearing on his predisposition to fall. We will further assess his left ventricular ejection fraction and make adjustments in his antihypertensive medications/cardiac medications in hopes of ameliorating his situation. Job#: [id number] CF
[2018-01-18] MEDS ORDERED: HYDROCHLOROTHIAZIDE 25 MG TAB PO SCH (09:00)
[2018-01-18] MEDS ORDERED: POTASSIUM CHLORIDE 10 MEQ TABCR PO SCH ×2 (09:00)
[2018-01-18] MEDS ORDERED: FUROSEMIDE 20 MG TAB PO SCH ×2 (09:00)
[2018-01-18] MEDS ORDERED: FUROSEMIDE 40 MG TAB PO SCH (09:00)
[2018-01-18] MEDS ORDERED: POTASSIUM CHLORIDE 20MEQ/15ML UDC PO SCH (09:00)
[2018-01-18] MEDS ORDERED: NON-FORMULARY MEDICATION (Mu-Vits-Min Th/Lycopene/Lutein (Centrum Silver Tablet) 1 TAB) PO SCH (09:00)
[2018-01-18] MEDS: CARVEDILOL 12.5 MG TAB PO SCH ×2 (10:00→21:40)
[2018-01-18] MEDS: LEVETIRACETAM 500 MG TAB PO SCH ×2 (10:00→21:40)
[2018-01-18] MEDS ORDERED: POTASSIUM CHLORIDE 10 MEQ TABCR PO ONE (10:00)
[2018-01-18] MEDS: DICYCLOMINE HCL 10 MG CAP PO SCH ×3 (10:00→21:40)
[2018-01-18 10:34] LABS: ANISOCYTOSIS SLIG; PLATELET ESTIMATE SLIGHTLY DECREASED; PLATELET MORPHOLOGY COMMENT FEW GIANT; POIKILOCYTOSIS SLIGHT; RBC MORPHOLOGY COMMENT NORMAL
[2018-01-18] MEDS: MULTIVITAMINS/MINERALS TAB PO SCH (10:41)
[2018-01-18 12:33] VITALS: BP 160/70
[2018-01-18] MEDS: POTASSIUM CHLORIDE 20MEQ/100ML 100 ML IV SCH ×2 (15:22→21:40)
[2018-01-18 16:45] VITALS: BP 145/78
[2018-01-18 20:00] VITALS: BP_SYST 139; BP_SYST 146; BP_SYST 156; BP_DIAS 71; BP_DIAS 76; BP_DIAS 82
[2018-01-18] MEDS: PANTOPRAZOLE SOD 40 MG TABEC PO SCH (21:40)
[2018-01-18] MEDS: SIMVASTATIN 20 MG TAB PO SCH (21:40)
[2018-01-19] VITALS (8 sets, daily range): BP systolic 148–168; BP diastolic 72–80
[2018-01-19] MEDS: LEVOTHYROXINE SODIUM 50 MCG TAB PO SCH (06:01)
[2018-01-19 06:33] LABS: BASOPHILS % 0.4 % (0.0-1.0); EOSINOPHILS # (AUTO) 0.4 (0.0-0.4); EOSINOPHILS % 5.4 % (0.0-6.0); HEMATOCRIT 33.3 % (38.2-49.6); HEMOGLOBIN 11.3 g/dL (14.0-18.0); LYMPHOCYTES # (AUTO) 1.5 (1.0-3.2); MEAN CORPUSCULAR HEMOGLOBIN 29.7 pg (28-32); MEAN CORPUSCULAR HGB CONC 33.9 g/dL (31-35); MEAN CORPUSCULAR VOLUME 87.6 fL (81-99); MONOCYTES % 12.5 % (4.4-11.3); NEUTROPHILS # (AUTO) 4.7 (2.1-6.9); NEUTROPHILS % 61.3 % (38.7-80.0); PLATELET COUNT 117 x10e3/uL (140-360)
[2018-01-19 07:20] LABS: ANION GAP 11.7 mmol/L (8-16); BLOOD UREA NITROGEN 14 mg/dL (7-26); BUN/CREATININE RATIO 16 (6-25); CALCIUM 8.7 mg/dL (8.4-10.2); CARBON DIOXIDE 25 mmol/L (22-29); CHLORIDE 111 mmol/L (98-107); EST GLOMERULAR FILTRATION RATE > 60 ML/MIN (60-); GLUCOSE 94 mg/dL (74-118); SODIUM 145 mmol/L (136-145)
[2018-01-19] MEDS: INSULIN REGULAR, HUMAN 100 UNIT/1 ML 3ML VIAL SQ SCH ×4 (07:30→21:00)
[2018-01-19 07:32] LABS: POTASSIUM 2.7 mmol/L (3.5-5.1)
[2018-01-19] MEDS: DICYCLOMINE HCL 10 MG CAP PO SCH ×3 (08:33→21:04)
[2018-01-19] MEDS: MULTIVITAMINS/MINERALS TAB PO SCH (08:33)
[2018-01-19] MEDS: LEVETIRACETAM 500 MG TAB PO SCH ×2 (08:33→21:04)
[2018-01-19] MEDS: POTASSIUM CHLORIDE 20MEQ/100ML 100 ML IV SCH ×4 (08:33→16:12)
[2018-01-19] MEDS: CARVEDILOL 12.5 MG TAB PO SCH ×2 (08:44→21:04)
[2018-01-19] MEDS ORDERED: HYDROCHLOROTHIAZIDE 25 MG TAB PO SCH (09:00)
[2018-01-19] MEDS: SODIUM CHLORIDE 0.9% 1000ML 1,000 ML IV SCH ×2 (11:50→21:04)
[2018-01-19] MEDS: SIMVASTATIN 20 MG TAB PO SCH (21:04)
[2018-01-19] MEDS: PANTOPRAZOLE SOD 40 MG TABEC PO SCH (21:04)
[2018-01-20] VITALS: BP 181/74
[2018-01-20] MEDS: HYDROCODONE/APAP 5MG-325MG TAB PO PRN (02:19)
[2018-01-20 04:00] VITALS: BP 166/79
[2018-01-20] MEDS: LEVOTHYROXINE SODIUM 50 MCG TAB PO SCH (05:20)
[2018-01-20 06:46] LABS: ANION GAP 13.2 mmol/L (8-16); BLOOD UREA NITROGEN 13 mg/dL (7-26); BUN/CREATININE RATIO 15 (6-25); CALCIUM 9.1 mg/dL (8.4-10.2); CARBON DIOXIDE 24 mmol/L (22-29); CHLORIDE 110 mmol/L (98-107); CREATININE, SERUM 0.89 mg/dL (0.72-1.25); EST GLOMERULAR FILTRATION RATE > 60 ML/MIN (60-); GLUCOSE 103 mg/dL (74-118); POTASSIUM 3.2 mmol/L (3.5-5.1); SODIUM 144 mmol/L (136-145)
[2018-01-20] MEDS: INSULIN REGULAR, HUMAN 100 UNIT/1 ML 3ML VIAL SQ SCH ×2 (07:30→11:30)
[2018-01-20 07:40] VITALS: BP 166/79
[2018-01-20 08:09] VITALS: BP 165/79
[2018-01-20] MEDS: DICYCLOMINE HCL 10 MG CAP PO SCH ×2 (08:36→13:54)
[2018-01-20] MEDS: CARVEDILOL 12.5 MG TAB PO SCH (08:36)
[2018-01-20] MEDS: MULTIVITAMINS/MINERALS TAB PO SCH (08:36)
[2018-01-20] MEDS: LEVETIRACETAM 500 MG TAB PO SCH (08:36)
[2018-01-20] MEDS: SODIUM CHLORIDE 0.9% 1000ML 1,000 ML IV SCH (09:11)
[2018-01-20 11:54] VITALS: BP 166/81
[2018-01-20] MEDS ORDERED: POTASSIUM CHLORIDE 20 MEQ TAB CR PO ONE (14:30)
--- NOTE | 2018-01-20 16:18 | Discharge Summary ---
The patient is an 82-year-old male who has a past medical history mainly positive for hypertension. He apparently had diarrhea which improved. He felt lightheaded and fell. There was no head trauma. CT of the head was negative. Chest x-ray did not show any significant abnormality except atelectasis. He was started on IV fluids because of postural hypotension. Carvedilol was reduced from 37.5 to 25 mg twice a day at the time of his prior discharge from the hospital. He had a colonoscopy in the past with resection of several polyps. The patient is doing well today. The potassium was relatively low. We are going to replace the potassium with 40 mEq of potassium. The patient is going home today and will follow up with Dr. Ramos, his primary care physician. Patient is anxious to go home today. On the physical exam, the heart shows regular rhythm. Normal S1 and S2 sounds. Lungs are clear bilaterally. Abdomen is soft. Extremities show no evidence of cyanosis, edema or trauma. On the vital signs, blood pressure is 166/81, temperature 96 degrees, heart rate 58 per minute, respiratory rate 16 per minute, oxygen saturation 96%. On the blood work, we have BMP with sodium 144, potassium 3.2, chloride 110, CO2 24, BUN 13, creatinine 0.89, glucose 103. On the CBC, white blood count is 7.60, hemoglobin 11.3, hematocrit 33.3, platelet 117,000. AST 18, ALT 12, total bilirubin 0.6, alkaline phosphatase 138. FINAL IMPRESSION 1. Near syncopal episode. 2. Hypokalemia. 3. Uncontrolled hypertension. 4. Seizure disorder. 5. History of paroxysmal atrial fibrillation. He does have a [employer] dual-chamber pacemaker for tachy-radha syndrome. MEDICATIONS ON DISCHARGE 1. Albuterol and Atrovent q.6 h. as needed for shortness of breath. 2. Norvasc 5 mg daily. 3. Protonix 40 mg daily. 4. He taking hydrochlorothiazide 25 mg q.48 h. 5. Furosemide 10 mg q.72 h. 6. Keppra 750 mg twice a day. 7. Multivitamin tablet daily. 8. He is also taking potassium chloride 20 mEq q.72 h. 9. Levothyroxine 50 mcg daily. 10. Simvastatin 10 mg daily. 11. Carvedilol 12.5 mg twice a day. Follow up with primary care physician, Dr. Ramos, and with Dr. Boone, his mine exploration engineer. TIANNA LEON MD Job#: [id number] MH
[2018-01-21] MEDS ORDERED: AMLODIPINE BESYLATE 5 MG TAB PO SCH (09:00)
== END 2018-01-20 14:47 | disposition home or self-care (01) | DRG 308 ==
LOC: ER 23:24 → MED/SURG 01-17 01:46
PROC: 02HV33Z Insertion of Infusion Device into Superior Vena Cava, Percutaneous Approach (ICD-10-PCS; principal; 2018-01-17)
PROC: 4B02XSZ Measurement of Cardiac Pacemaker, External Approach (ICD-10-PCS; 2018-01-17)
DX: I48.0 Paroxysmal atrial fibrillation (principal); G93.40 Encephalopathy, unspecified; I42.9 Cardiomyopathy, unspecified; E86.0 Dehydration; R62.7 Adult failure to thrive; I08.3 Combined rheumatic disorders of mitral, aortic and tricuspid valves; N18.3 Chronic kidney disease, stage 3 (moderate); G40.909 Epilepsy, unspecified, not intractable, without status epilepticus; E87.6 Hypokalemia; I95.1 Orthostatic hypotension; R60.0 Localized edema; I25.10 Atherosclerotic heart disease of native coronary artery without angina pectoris; E11.9 Type 2 diabetes mellitus without complications; E03.9 Hypothyroidism, unspecified; G47.33 Obstructive sleep apnea (adult) (pediatric); Z79.52 Long term (current) use of systemic steroids; I12.9 Hypertensive chronic kidney disease with stage 1 through stage 4 chronic kidney disease, or unspecified chronic kidney disease; Z95.810 Presence of automatic (implantable) cardiac defibrillator; Z87.891 Personal history of nicotine dependence; Z79.4 Long term (current) use of insulin; W19.XXXA Unspecified fall, initial encounter; Z91.81 History of falling
CPT/HCPCS: 36415; 70450; 71045; 80048; 80053; 81001; 82550; 82553; 82948; 84484; 85025; 93005; 97139; 99284; J3480; J7030

== ENCOUNTER 2018-03-24 01:20 | Emergency (ER) | payer MEDICARE ==
[~2018-03-24] VITALS: Ht 177.8 cm; Wt 80.3 kg
[~2018-03-24 01:20] MED LIST changes: +DICYCLOMINE HCL10 MG PO; +DUONEBS INH; +LEVETIRACETAM500 MG PO; +NORCO 5-325 TA1 EACH PO
--- OUTSIDE RECORDS SUMMARY | 2018-03-24 01:23 | XMS REPORT | Continuity of Care Document ---
Author Author [facility] Organization [facility] Address [address] [place] [address] Phone Unavailable Care Team Providers Care Modeling Manager Name Role Phone FABIAN KHAN DO PCP Insurance Providers Guarantor Tien Hope Address [address] [address] Email [email or web address] Medicare Replacement Policy Number [id number] Subscriber's Name Tien Hope Relationship 18 Self / Same As Patient Group Number [id number] Group Name [facility] 3 Effective Date 12 Advance Directives Directive Response Recorded Date/Time Does the patient have an advance directive? No 01/17/18 3:12am If yes, is advance directive on file with [facility]? No 01/17/18 3:12am If not on file with [facility] will patient provide a copy? Yes 01/17/18 3:12am Do you have a Directive to Physician? No 01/17/18 1:20am Do you have a Medical Power of Fishing Rod Mechanic? No 01/17/18 1:20am Do you have an out of hospital Do Not Resuscitate Order? No 01/17/18 1:20am Do you have any special needs we should be aware of? No 01/17/18 1:20am Do you have a support person here with you today? Yes 01/17/18 1:20am Did patient receive Notice of Privacy Practices? Yes 01/17/18 1:20am Did patient receive patient rights and responsibilities? Yes 01/17/18 1:20am Problems Medical Problem Onset Date Status Decreased activities of daily living (ADL) Unknown Dehydration Unknown Fecal retention Unknown Flail chest Unknown Gallstones Unknown Generalized weakness Unknown Hemothorax on left Unknown Hypokalemia Unknown Orthostatic hypotension Unknown Pancreatitis Unknown Pneumothorax Unknown Rectal bleeding Unknown Syncope Unknown Urinary retention Unknown Medications Current Home Medications Medication Dose Units Route Directions Days Qty Instructions Start Date Carvedilol 12.5 Mg Tablet 25 Mg Oral Every 12 Hours 60 Tab Dicyclomine Hcl 10 Mg Capsule 10 Mg Oral Three Times A Day Duonebs Mg Inhalation Every 6 Hours Furosemide 40 Mg Tablet 10 Mg Oral Every 2 Days 30 Tab Hydrochlorothiazide 25 Mg Tablet 25 Mg Oral Every Other Day 30 Tab Hydrocodone Bit/Acetaminophen ([place] 5-325 Tablet) 1 Each Tablet 1 Each Oral Every 6 Hours as needed for Pain Levetiracetam 500 Mg Tablet 750 Mg Oral Every 12 Hours Levothyroxine Sodium 50 Mcg Tablet 50 Mcg Oral Daily 30 Tab Mu-Vits-Min Th/Lycopene/Lutein (Centrum Silver Tablet) 1 Each Tablet 1 Tab Oral Daily Omeprazole 40 Mg Capsule.dr 40 Mg Oral Bedtime Potassium Chloride 10 Meq Tab.er.prt 8 Meq Oral Every Other Day Rosuvastatin Calcium (Crestor) 10 Mg Tab 10 [...] Oral Daily Discontinued Fluticasone Propionate 16 Gm [place].susp, 1 Spr Nasal Daily Discontinued Fluticasone Propionate (Flovent Diskus) 50 Mcg Disk.w.dev, 1 Spr Nasal Daily Discontinued Fluticasone/Salmeterol (Advair 100-50 Diskus) 1 Each Disk.w.dev, 1 Inh Inhalation Daily Discontinued Fluticasone/Salmeterol (Advair Hfa 115-21 Mcg [...] Daily Discontinued Niacin Bid , 500 Discontinued [place]-3 Acid Ethyl Esters (Lovaza) 1 Gm Capsule, 2 Cap Oral Twice A Day Discontinued [place]-3 Acid Ethyl Esters (Lovaza) 1 Gm Capsule, 1 Gm Oral Twice A Day Discontinued [place]-3 Fatty Acids/Fish Oil (Fish Oil 1,000 Mg [...] Onset Date Status Hx Psychiatric Problems No 01/17/2018 3:12am Not Applicable Not Applicable Hx Eating Disorder No 01/17/2018 3:12am Not Applicable Not Applicable Hx Substance Use Disorder No 01/17/2018 3:12am Not Applicable Not Applicable Hx Depression No 01/17/2018 3:12am Not Applicable Not Applicable Hx Alcohol Use No 01/17/2018 3:12am Not Applicable Not Applicable Hx Substance Use Treatment No 01/17/2018 3:12am Not Applicable Not Applicable Hx Physical Abuse No 01/17/2018 3:12am Not Applicable Not Applicable Hospital Discharge Instructions No hospital discharge instruction information available. Plan of Care Discharge Date 01/20/18 2:47pm Disposition HOME, SELF-CARE Instructions/Education Provided Dehydration - Adult Fall Prevention Prescriptions See Medication Section Additional Instructions/Education FOLLOW UP WITH PRIMARY CARE PROVIDER IN ONE WEEK. Functional Status Query Response Date Recorded Assistive Devices None January 17, 2018 3:20am Ambulation Ability Moderate Assistance January 17, 2018 3:20am Toileting Ability Independent January 19, 2018 5:47pm Allergies, Adverse Reactions, Alerts Allergen Type Severity Reaction Status Last Updated Fentanyl Allergy Intermediate seizure Active 01/07/18 Immunizations No immunization information available. Vital Signs Acute Vital Signs Vital Response Date/Time Temperature (Fahrenheit) 96.0 degrees F (97.6 - 99.5) 01/20/2018 11:54am Pulse Pulse Rate (adult) 58 bpm (60 - 90) 01/20/2018 11:54am Respiratory Rate 16 bpm (12 - 24) 01/20/2018 11:54am Blood Pressure 166/81 mm Hg 01/20/2018 11:54am Height 5 ft 10 in 01/16/2018 11:27pm Weight 177.19 lb 01/20/2018 8:10am Body Mass Index 25.4 kg/m^2 01/20/2018 8:10am Results Laboratory Results Test Name Result Units Flags Reference Collection Date/Time Result Date/ Time Comments Band Neutrophils % 1 % 04/24/2017 6:00am 04/24/2017 7:29am Reactive Lymphocytes 2 04/24/2017 6:00am 04/24/2017 7:29am Urine Mucus FEW H RARE 04/18/2017 8:40pm [...] 1 % 0-1.5 12/15/2017 5:55am 12/15/2017 7:49am Hypochromasia SLIGHT 12/15/2017 5:55am 12/15/2017 7:49am Iron Level 27 ug/dL L 65-175 12/17/2017 [...] Pressure CO2 40 mmHg L 41-51 12/13/2017 11:12/13/2017 12:42pm Arterial Blood Partial Pressure O2 82 mmHg 80-105 12/13/2017 11:10a 12:42pm Arterial Blood HCO3 24 mmol/L 23-28 12/13/2017 11:10a12/13/2017 12: 42pm Arterial Blood Base Excess -1.0 mmol/L -2 - 3 12/13/2017 11:10a2017 12:42pm Arterial Blood Oxygen Saturation 96.0 % 95-98 12/13/2017 11:10a2017 12:42pm Prothrombin Time 13.3 seconds 11.9-14.5 01/07/2018 3:00pm [...] seconds 23.8-35.5 01/07/2018 3: 00pm 01/07/2018 4:00pm B-Type Natriuretic Peptide 32.3 pg/mL 0-100 01/07/2018 3:00pm 2017 4:18pm Stool Lactoferrin (LAB) POSITIVE H NEGATIVE 01/12/2018 6:04pm 2017 6:59pm Testing on stool aspirate specimens is outside power electronics research engineer claims since specimen type not validated on this assay. Stool Calprotectin <16 ug/g 0-120 01/12/2018 6:04pm 01/17/2018 4:20pm Concentration Interpretation Follow-Up <16 - 50 ug/g Normal None >50 -120 ug/g Borderline Re-evaluate in 4-6 weeks >120 ug/g Abnormal Repeat as clinically indicated Performed at: [address] [place] [id number] Dowel Inserting Machine Operator: Liborio Brunner MD, Phone: [phone] Clostridium Difficile Toxin A & B NEGATIVE NEGATIVE 01/12/2018 6:04pm 01/12/2018 9:06pm Testing on stool aspirate specimens is outside power electronics research engineer claims since specimen type not validated on this assay. White Blood Count 7.60 x10e3/uL 4.8-10.8 01/19/2018 5:57am 01/19/2018 6 :48am Red Blood Count 3.80 x10e6/uL L 4.3-5.7 01/19/2018 5:57am 01/19/2018 6: 48am Hemoglobin 11.3 g/dL L 14.0-18.0 01/19/2018 5:57am 01/19/2018 6:48am Hematocrit 33.3 % L 38.2-49.6 01/19/2018 5:57am 01/19/2018 6:48am Mean Corpuscular Volume 87.6 fL 81-99 01/19/2018 5:57am 01/19/2018 6: 48am Mean Corpuscular Hemoglobin 29.7 pg 28-32 01/19/2018 5:57am 01/19/2018 6:48am Mean Corpuscular Hemoglobin Concent 33.9 g/dL 31-35 01/19/2018 5:57am 01/19/2018 6:48am Red Cell Distribution Width 14.0 % 11.7-14.4 01/19/2018 5:57am 2017 6:48am Platelet Count 117 x10e3/uL L 140-360 01/19/2018 5:57am 01/19/2018 6: 48am Neutrophils (%) (Auto) 61.3 % 38.7-80.0 01/19/2018 5:57am 01/19/2018 6: 48am Lymphocytes (%) (Auto) 20.0 % 18.0-39.1 01/19/2018 5:57am 01/19/2018 6: 48am Monocytes (%) (Auto) 12.5 % H 4.4-11.3 01/19/2018 5:57am 01/19/2018 6: 48am Eosinophils (%) (Auto) 5.4 % 0.0-6.0 01/19/2018 5:57am 01/19/2018 6: 48am Basophils (%) (Auto) 0.4 % 0.0-1.0 01/19/2018 5:57am 01/19/2018 6:48am IM GRANULOCYTES % 0.4 % 0.0-1.0 01/19/2018 5:57am 01/19/2018 6:48am Neutrophils # (Auto) 4.7 2.1-6.9 01/19/2018 5:57am 01/19/2018 6:48am Lymphocytes # (Auto) 1.5 1.0-3.2 01/19/2018 5:57am 01/19/2018 6:48am Monocytes # (Auto) 1.0 H 0.2-0.8 01/19/2018 5:57am 01/19/2018 6:48am Eosinophils # (Auto) 0.4 0.0-0.4 01/19/2018 5:57am 01/19/2018 6:48am Basophils # (Auto) 0.0 0.0-0.1 01/19/2018 5:57am 01/19/2018 6:48am Absolute Immature Granulocyte (auto 0.03 x10e3/uL 0-0.1 01/19/2018 5: 57am 01/19/2018 6:48am Platelet Estimate SLIGHTLY DECREASED 01/18/2018 7:00am 01/18/2018 10:34am Platelet Morphology Comment FEW GIANT 01/18/2018 7:00am 01/18/2018 10:34am Poikilocytosis SLIGHT 01/18/2018 7:00am 01/18/2018 10:34am Anisocytosis SLIG 01/18/2018 7:00am 01/18/2018 10:34am Red Cell Morphology Comment NORMAL 01/18/2018 7:00am 01/18/2018 10: 34am Urine Color YELLOW YELLOW 01/17/2018 12:49am 01/17/2018 12:54am Urine Clarity CLEAR CLEAR 01/17/2018 12:49am 01/17/2018 12:54am Urine Specific [place] 1.010 1.010-1.025 01/17/2018 12:49am 2017 12:54am Urine pH 6 5 - 7 01/17/2018 12:49am 01/17/2018 12:54am Urine Leukocyte Esterase NEGATIVE NEGATIVE 01/17/2018 12:49am 2017 12:54am Urine Nitrite NEGATIVE NEGATIVE 01/17/2018 12:49am 01/17/2018 12: 54am Urine Protein NEGATIVE NEGATIVE 01/17/2018 12:49am 01/17/2018 12: 54am Urine Glucose (UA) NEGATIVE NEGATIVE 01/17/2018 12:49am 01/17/2018 12 :54am Urine Ketones NEGATIVE NEGATIVE 01/17/2018 12:49am 01/17/2018 12: 54am Urine Urobilinogen 0.2 mg/dL 0.2 - 1 01/17/2018 12:49am 01/17/2018 12: 54am Urine Bilirubin NEGATIVE NEGATIVE 01/17/2018 12:49am 01/17/2018 12: 54am Urine Blood NEGATIVE NEGATIVE 01/17/2018 12:49am 01/17/2018 12:54am Urine WBC 0-5 /HPF 0-5 01/17/2018 12:49am 01/17/2018 1:03am Urine RBC 0-5 /HPF 0-5 01/17/2018 12:49am 01/17/2018 1:03am Urine Bacteria RARE /HPF NONE 01/17/2018 12:49am 01/17/2018 1:03am Urine Epithelial Cells RARE /LPF NONE 01/17/2018 12:49am 01/17/2018 1: 03am Sodium Level 144 mmol/L 136-145 01/20/2018 6:15am 01/20/2018 7:02am Potassium Level 3.2 mmol/L L 3.5-5.1 01/20/2018 6:15am 01/20/2018 7: 02am Chloride Level 110 mmol/L H 98-107 01/20/2018 6:15am 01/20/2018 7:02am Carbon Dioxide Level 24 mmol/L 22-29 01/20/2018 6:15am 01/20/2018 7: 02am Anion Gap 13.2 mmol/L 8-16 01/20/2018 6:15am 01/20/2018 7:02am Blood Urea Nitrogen 13 mg/dL 7-01/20/2018 6:15am 01/20/2018 7:02am Creatinine 0.89 mg/dL 0.72-1.25 01/20/2018 6:15am 01/20/2018 7:02am BUN/Creatinine Ratio 15 6-25 01/20/2018 6:15am 01/20/2018 7:02am Estimat Glomerular Filtration Rate > 60 ML/MIN 60- 01/20/2018 6:15am 7:02am Ranges were taken from the National Kidney Disease Education Program and the National Kidney Foundation literature. Reference ranges: 60 or greater: Normal 16-59 (for 3 consecutive months): Chronic kidney disease 15 or less: Kidney failure Glucose Level 103 mg/dL 74-118 01/20/2018 6:15am 01/20/2018 7:02am Calcium Level 9.1 mg/dL 8.4-10.2 01/20/2018 6:15am 01/20/2018 7:02am Bedside Glucose 100 mg/dL 70-120 01/20/2018 11:24am 01/20/2018 12:07pm Meter ID: [id number] Total Bilirubin 0.6 mg/dL 0.2-1.2 01/18/2018 7:00am 01/18/2018 8:00am Aspartate Amino Transf (AST/SGOT) 18 IU/L 5-34 01/18/2018 7:00am 2017 8:00am Alanine Aminotransferase (ALT/SGPT) 12 IU/L 0-55 01/18/2018 7:00am 06/2018 8:00am Total Protein 6.4 g/dL L 6.5-8.1 01/18/2018 7:00am 01/18/2018 8:00am Albumin 3.0 g/dL L 3.5-5.0 01/18/2018 7:00am 01/18/2018 8:00am Globulin 3.4 g/dL 2.3-3.5 01/18/2018 7:00am 01/18/2018 8:00am Albumin/Globulin Ratio 0.9 0.8-2.0 01/18/2018 7:00am 01/18/2018 8: 00am Alkaline Phosphatase 138 IU/L 40-150 01/18/2018 7:00am 01/18/2018 8: 00am Creatine Kinase 26 IU/L L 30-200 01/17/2018 4:40pm 01/17/2018 5:03pm Creatine Kinase MB 1.10 ng/mL 0-5.0 01/17/2018 4:40pm 01/17/2018 5: 09pm Troponin I 0.029 ng/mL 0-0.300 01/17/2018 4:40pm 01/17/2018 5:09pm Microbiology Results Procedure Source Organism/Result Collection Date/Time [...] and pelvis with contrast Active 11/03/17 RAVEN KHAN DO Computed tomography of brain without radiopaque contrast Active 12/12/17 PIERRE AUSTIN MD Computed tomography of cervical spine without contrast Active 12/12/17 PIERRE AUSTIN MD Computed tomography of chest without contrast Active 12/12/17 PIERRE AUSTIN MD Computed tomography of brain without radiopaque contrast Active 01/07/18 COLIN REDMAN MD X-ray of chest, two views Active 01/07/18 COLIN REDMAN MD Computed tomography of brain without radiopaque contrast Active 01/16/18 SHELLI WILLINGHAM MD Encounters Encounter Location Arrival/Admit Date Discharge/Depart Date Attending Provider Discharged Inpatient [facility] 01/17/18 1:46am 01/20/18 2:47pm DOMINICK GUILLORY MD Discharged Inpatient [facility] 01/08/18 2:23pm 01/13/18 2:33pm DOMINICK GUILLORY MD Registered Clinic [facility] 12/21/17 11:30am DOMINICK GUILLORY MD Discharged Inpatient [facility] 12/12/17 8:02am 12/19/17 4:13pm DOMINICK GUILLORY MD Registered [facility] 11/30/17 7:22am LONNIE GUILLORY MD Registered Clinic [facility] 11/03/17 3:40pm RAVEN KAHN DO Discharged Inpatient [facility] 04/19/17 12:48am 6:35pm DOMINICK GUILLORY MD
== END 2018-03-24 03:34 | disposition home or self-care (01) ==
LOC: ER 01:20
DX: Z48.01 Encounter for change or removal of surgical wound dressing (principal)
CPT/HCPCS: 99282

== ENCOUNTER → 2018-04-17 | Outpatient (CLI) | payer MEDICARE ==
[~2018-04-17] MED LIST changes: +DIATRIZOATE MEGL/DIATRIZOA SOD 30 ML BTL PO ONE
--- NOTE | 2018-04-17 15:35 | Diagnostic Imaging Report ---
PROCEDURE: CT ABDOMEN AND PELVIS WITHOUT CONTRAST TECHNIQUE: The abdomen and pelvis were scanned utilizing a multidetector helical scanner from the diaphragm to the lesser trochanter after the oral administration of dilute Gastrografin.. No IV contrast was administered per physician's request. Coronal and sagittal multiplanar reformations were obtained. COMPARISON: [facility], CT, CT ABDOMEN/PELVIS , 04/18/2017, 22:41. INDICATIONS: RIGHT UPPER ABD PAIN FOR 1 WEEK FINDINGS: ABSENCE OF INTRAVENOUS CONTRAST DECREASES SENSITIVITY FOR DETECTION OF FOCAL LESIONS AND VASCULAR PATHOLOGY. LOWER THORAX: [id number] left pleural effusion with compressive atelectasis of left lower lobe. Right lung is clear. Atherosclerotic calcification of the coronary arteries and thoracic aorta. Distal portion of pacemaker wires noted in the right atrium and right ventricle. 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 HEPATOBILIARY: No focal hepatic lesions. No biliary ductal dilatation. Cholecystectomy clips. SPLEEN: No splenomegaly. Calcified splenic granuloma. PANCREAS: No focal lesion or ductal dilation. No peripancreatic inflammatory changes or fluid collections. ADRENALS: No adrenal nodules. KIDNEYS/URETERS: No hydronephrosis, stones, or solid mass lesions. Stable 3.4 x 4.4 cm mostly exophytic simple cyst in the posterior superior left kidney (series 2 image 37. Stable 3.4 x 3.1 cm simple cyst in the lateral interpolar right kidney (series 2 image 41). PELVIC ORGANS/BLADDER: Bladder is unremarkable. Mild dystrophic calcifications in the prostate.. PERITONEUM / RETROPERITONEUM: No free air or fluid. LYMPH NODES: No lymphadenopathy. VESSELS: Atherosclerotic calcification of the abdominal aorta and iliac vessels. GI TRACT: No bowel dilation or evidence of obstruction. Appendix is well identified and normal in caliber. BONES AND SOFT TISSUES: No aggressive lytic lesions. Moderate multilevel degenerative disc changes in the lower thoracic and lumbosacral spine, worse at L2-L3, with marked intervertebral disc space narrowing and subchondral sclerosis. Mild anterior wedge deformity of the T12 vertebral body, which is new since prior exam. Small fat containing left inguinal hernia. IMPRESSION: 1. no acute abdominopelvic abnormalities. Specifically, no acute abnormal findings in the right abdomen to explain the patient's pain. 2. Small to moderate left pleural effusion with associated compressive atelectasis of the left lower lobe. 3. Anterior wedge deformity of the T12 vertebral body, likely representing an age-indeterminate compression fracture. This is new since prior CT dated 04/18/2017. 4. 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 Eugene López M.D. Dictated by: Eugene López M.D. on 04/17/2018 at 15:38 Electronically approved by: Eugene López M.D. on 04/17/2018 at 15:38
== END ==
LOC: CT 13:00
PROVIDERS: ATTEND Family Medicine
DX: R10.11 Right upper quadrant pain (principal)
CPT/HCPCS: 74176

== ENCOUNTER → 2018-04-25 | Outpatient (CLI) | payer MEDICARE ==
[~2018-04-25] MED LIST changes: -DIATRIZOATE MEGL/DIATRIZOA SOD 30 ML BTL PO ONE
--- NOTE | 2018-04-25 09:29 | Diagnostic Imaging Report ---
PROCEDURE:US CHEST (INCL MEDIASTINUM) COMPARISON:None. INDICATIONS:Pleural Effusion TECHNIQUE:Navarro scale color Doppler ultrasound chest FINDINGS: See conclusion. CONCLUSION: Large left pleural effusion. No right pleural effusion. The patient was scheduled for left thoracentesis. The procedure was rescheduled given active shingles (with weeping vesicles). Dictated by: Gee Brunner M.D. on 04/25/2018 at 9:32 Electronically approved by: Gee Brunner M.D. on 04/25/2018 at 9:32
== END ==
LOC: US 08:16
PROVIDERS: ATTEND Internal Medicine Pulmonary Disease
DX: J90 Pleural effusion, not elsewhere classified (principal)
CPT/HCPCS: 76604

== ENCOUNTER → 2018-04-26 | Outpatient (CLI) | payer MEDICARE ==
--- NOTE | 2018-04-26 14:26 | Diagnostic Imaging Report ---
PROCEDURE:CHEST XRAY POST PROCEDURE TECHNIQUE:Portable AP chest INDICATION:Postthoracentesis COMPARISON:None. FINDINGS: Mild left hemidiaphragm elevation. Small left pleural effusion with left lower lobe and lingular atelectasis. Cardiomegaly. Indwelling pacemaker over the right hemithorax; leads intact. Central vascular enlargement with accompanying interstitial opacity. Displaced fractures of the left fourth, fifth, sixth and seventh ribs. CONCLUSION: 1. No pneumothorax status post left thoracentesis. 2. Left lower lobe and lingular airspace opacity consistent with a combination of atelectasis and small effusion. Dictated by: Gee Brunner M.D. on 04/26/2018 at 14:30 Electronically approved by: Gee Brunner M.D. on 04/26/2018 at 14:30
--- NOTE | 2018-04-26 14:31 | Diagnostic Imaging Report ---
Ultrasound-guided Thoracentesis 04/26/2018 Pre-Procedure Diagnosis: Left pleural effusion Post-procedure Diagnosis:Left pleural effusion Wood Milling Machine Tender: Ronak Brunner Polymer Chemist: None Sedation: None. 1% lidocaine local anesthesia. Estimate blood loss: <5 mL Blood administered: None Complications: None Implants/Grafts: None Specimen: 1000 mL serous fluid. Procedure: Informed consent was obtained and the patient positioned in a sitting position in the ultrasound suite. A timeout was performed, followed by preliminary ultrasound of the chest. The back was prepped and draped in standard sterile fashion. Using real-time ultrasound guidance a 5-Algerian one-step centesis needle was advanced into the left thoracic cavity. An image was stored in the electronic medical record. 1300 mL serous fluid was aspirated. At the end of the procedure the catheter was removed and a sterile dressing applied. The patient tolerated the procedure well. No complications. Findings: Large volume right effusion. Impression: Successful ultrasound-guided left thoracentesis with removal of 1300 mL of fluid. Samples were submitted for evaluation if requested by the referring clinician. This report was generated with voice-recognition technology. Errors in director market research can occur. Please interpret accordingly and contact a radiologist if there are any questions regarding the report. Signed by: Dr. Gee Brunner M.D. on 04/26/2018 2:27 PM
== END ==
LOC: OR 13:10
PROVIDERS: ATTEND Internal Medicine Pulmonary Disease
DX: J90 Pleural effusion, not elsewhere classified (principal)
CPT/HCPCS: 32555; 71045; 82945; 83615; 84157; 87070; 87116; 87205; 87206; 88112; 88305

== ENCOUNTER → 2018-05-07 | Outpatient (CLI) | payer MEDICARE ==
[2018-05-07 10:17] LABS: BASOPHILS % 0.3 % (0.0-1.0); EOSINOPHILS # (AUTO) 0.4 (0.0-0.4); EOSINOPHILS % 4.1 % (0.0-6.0); HEMATOCRIT 41.6 % (38.2-49.6); HEMOGLOBIN 13.5 g/dL (14.0-18.0); LYMPHOCYTES # (AUTO) 1.7 (1.0-3.2); LYMPHOCYTES % 18.3 % (18.0-39.1); MEAN CORPUSCULAR HEMOGLOBIN 28.7 pg (28-32); MEAN CORPUSCULAR HGB CONC 32.5 g/dL (31-35); MEAN CORPUSCULAR VOLUME 88.3 fL (81-99); MONOCYTES # (AUTO) 0.8 (0.2-0.8); NEUTROPHILS # (AUTO) 6.6 (2.1-6.9); NEUTROPHILS % 69.1 % (38.7-80.0); PLATELET COUNT 180 x10e3/uL (140-360); RED BLOOD COUNT 4.71 x10e6/uL (4.3-5.7)
[2018-05-07 10:29] LABS: BILIRUBIN,URINE NEGATIVE (NEGATIVE); CLARITY,URINE CLEAR (CLEAR); COLOR,URINE YELLOW (YELLOW); KETONES,URINE NEGATIVE (NEGATIVE); LEUKOCYTE ESTERASE ,URINE NEGATIVE (NEGATIVE); NITRITE,URINE NEGATIVE (NEGATIVE); PROTEIN,URINE DIPSTICK NEGATIVE (NEGATIVE); URINE UROBILINOGEN 0.2 mg/dL (0.2 - 1)
--- NOTE | 2018-05-07 10:44 | Diagnostic Imaging Report ---
PROCEDURE: X-RAY CHEST, TWO VIEWS COMPARISON: None. INDICATIONS: PLEURAL EFFUSION FINDINGS: LUNGS: No consolidations or edema. PLEURA: There is a moderate left pleural effusion. HEART \T\ MEDIASTINUM: The heart is mildly enlarged. Dual-lead right-sided cardiac device present. BONES \T\ SOFT TISSUES: Old left-sided rib fractures. Mild wedging of T12 thoracic spine vertebral body. CONCLUSION: Mild cardiomegaly with moderate left pleural effusion. Gage Harry D.O. Dictated by: Gage Harry D.O. on 05/07/2018 at 10:47 Electronically approved by: Gage Harry D.O. on 05/07/2018 at 10:47
== END ==
LOC: RAD 09:28
PROVIDERS: ATTEND Internal Medicine Cardiovascular Disease
DX: J91.8 Pleural effusion in other conditions classified elsewhere (principal); I10 Essential (primary) hypertension; R42 Dizziness and giddiness
CPT/HCPCS: 36415; 71046; 81003; 85025

== ENCOUNTER 2018-09-19 15:17 | Emergency (ER) | payer MEDICARE, OTHER ==
[~2018-09-19] VITALS: Ht 177.8 cm; Wt 80.3 kg
[2018-09-19 16:46] LABS: BASOPHILS % 0.3 % (0.0-1.0); EOSINOPHILS # (AUTO) 0.4 (0.0-0.4); EOSINOPHILS % 4.2 % (0.0-6.0); HEMATOCRIT 41.2 % (38.2-49.6); HEMOGLOBIN 13.9 g/dL (14.0-18.0); LYMPHOCYTES # (AUTO) 1.9 (1.0-3.2); LYMPHOCYTES % 22.3 % (18.0-39.1); MEAN CORPUSCULAR HEMOGLOBIN 30.8 pg (28-32); MEAN CORPUSCULAR HGB CONC 33.7 g/dL (31-35); MEAN CORPUSCULAR VOLUME 91.4 fL (81-99); MONOCYTES # (AUTO) 0.8 (0.2-0.8); MONOCYTES % 9.7 % (4.4-11.3); NEUTROPHILS # (AUTO) 5.5 (2.1-6.9); NEUTROPHILS % 63.3 % (38.7-80.0); PLATELET COUNT 155 x10e3/uL (140-360); RED BLOOD COUNT 4.51 x10e6/uL (4.3-5.7)
[2018-09-19 16:49] LABS: BILIRUBIN,URINE NEGATIVE (NEGATIVE); CLARITY,URINE CLEAR (CLEAR); COLOR,URINE YELLOW (YELLOW); KETONES,URINE NEGATIVE (NEGATIVE); LEUKOCYTE ESTERASE ,URINE NEGATIVE (NEGATIVE); NITRITE,URINE NEGATIVE (NEGATIVE); PROTEIN,URINE DIPSTICK NEGATIVE (NEGATIVE); URINE UROBILINOGEN 0.2 mg/dL (0.2 - 1)
[2018-09-19 16:50] LABS: INR 0.92; PROTHROMBIN TIME 13.2 seconds (11.9-14.5)
[2018-09-19 16:51] LABS: PARTIAL THROMBOPLASTIN TIME 34.2 seconds (23.8-35.5)
[2018-09-19 16:58] LABS: ALANINE AMINOTRANSFERASE 14 IU/L (0-55); ALBUMIN 3.3 g/dL (3.5-5.0); ALBUMIN/GLOBULIN RATIO 0.9 (0.8-2.0); ALKALINE PHOSPHATASE 75 IU/L (40-150); ANION GAP 14.7 mmol/L (8-16); BLOOD UREA NITROGEN 24 mg/dL (7-26); BUN/CREATININE RATIO 22 (6-25); CALCIUM 9.6 mg/dL (8.4-10.2); CARBON DIOXIDE 24 mmol/L (22-29); CHLORIDE 103 mmol/L (98-107); CREATINE KINASE 57 IU/L (30-200); CREATININE, SERUM 1.08 mg/dL (0.72-1.25); EST GLOMERULAR FILTRATION RATE > 60 ML/MIN (60-); GLUCOSE 96 mg/dL (74-118); POTASSIUM 3.7 mmol/L (3.5-5.1); SODIUM 138 mmol/L (136-145)
[2018-09-19 17:04] LABS: BACTERIA,URINE FEW /HPF; EPITHELIAL CELLS,URINE RARE /LPF; RBC,URINE 0-5 /HPF (0-5)
[2018-09-19 17:18] LABS: THYROID STIMULATING HORMONE 0.631 uIU/mL (0.350-4.940)
--- NOTE | 2018-09-19 17:59 | Diagnostic Imaging Report ---
Frontal and lateral views of the chest. HISTORY: Elevated blood pressure COMPARISON: Chest radiograph September 19, 2018 earlier the same date DISCUSSION: Right-sided implanted cardiac device. Lungs and pleural: Persistent moderate to large left pleural effusion with associated atelectasis, the effusion may be slightly smaller.. Underlying pathology could be obscured. Right basilar increased volume loss and patchy opacities. Heart and mediastinum: The cardiac silhouette is predominantly obscured. Bones: Unchanged. IMPRESSION: 1. Slightly decreased moderate to large left pleural effusion with associated atelectasis. Recommend short term follow up PA and lateral chest radiographs, in 6-8 weeks, to evaluate for resolution. 2. No visible pneumothorax. 3. Interval increased right basilar atelectasis versus aspiration the appropriate setting. Signed by: Dr. Saul Randolph D.O., M.M.M. on 09/19/2018 5:56 PM
== END 2018-09-19 19:00 | disposition home or self-care (01) ==
LOC: ER 15:17
DX: I10 Essential (primary) hypertension (principal)
CPT/HCPCS: 36415; 71045; 80053; 81001; 82550; 82553; 83880; 84443; 84484; 85025; 85610; 85730; 87086; 99283

== ENCOUNTER → 2018-09-19 | Outpatient (CLI) | payer MEDICARE ==
[2018-09-19 12:59] LABS: INR 0.91; PROTHROMBIN TIME 13.1 seconds (11.9-14.5)
[2018-09-19 13:00] LABS: PARTIAL THROMBOPLASTIN TIME 31.1 seconds (23.8-35.5)
--- NOTE | 2018-09-19 14:42 | Diagnostic Imaging Report ---
EXAM: XR CHEST 1 VIEW DATE: 09/19/2018 2:00 PM INDICATION: Post thoracentesis COMPARISON: 07/23/2018, no report available FINDINGS: Lines and Tubes: Right chest wall pacemaker with leads overlying right atrium and right ventricle. Heart and Mediastinum: Moderate cardiomegaly. Lungs and Pleura: Moderate to large pleural-parenchymal opacity left mid and lower lung obscuring left heart border and left lung base suggesting moderate to large effusion with superimposed atelectasis and/or pneumonia. No distinct pneumothorax identified. Small effusion on the right possible. Bones and Soft Tissues: Left rib fractures again identified. IMPRESSION: 1. Moderate to large left pleural effusion with superimposed atelectasis and/or pneumonia, increased from previous radiograph. Signed by: Dr. Bennie Reyes MD on 09/19/2018 2:38 PM
[2018-09-19 14:50] LABS: BODY FLUID APPEARANCE SL.CLOUDY; BODY FLUID COLOR STRAW; BODY FLUID TYPE PLEURAL
--- NOTE | 2018-09-19 15:27 | Diagnostic Imaging Report ---
Procedure: Ultrasound-guided left diagnostic thoracentesis box printing machine operator: Dr. Char Olivier Pre-operative diagnosis: Small to moderate left pleural effusion Post-operative diagnosis: Small to moderate left pleural effusion Local sedation: 10 cc of 1% subcutaneous lidocaine Estimated blood loss: Minimal Implants: None TECHNIQUE/FINDINGS: Informed consent was obtained from the patient and documented in the medical record. The patient was positioned in the upright position. The left back was prepped and draped in standard sterile fashion. 1% lidocaine was infiltrated into the skin and subcutaneous tissues for local anesthesia. Preliminary ultrasound demonstrated a small to moderate left pleural effusion. Then under sonographic guidance, a 20 gauge spinal needle was advanced into the left pleural space. A total of 60 cc of serous fluid was aspirated. The needle was removed and a sterile, occlusive dressing was applied. The patient tolerated the procedure well. IMPRESSION: Ultrasound-guided left diagnostic thoracentesis with removal of 60 cc of serous fluid. Signed by: Dr. Char Olivier MD on 09/19/2018 3:24 PM
[2018-09-19 16:50] LABS: RBC,BODY FLUID 322 cells/uL; WBC,BODY FLUID 90 cells/uL
[2018-09-19 18:35] LABS: EOSINOPHILS,BODY FLUID 3 %; LYMPHOCYTES,BODY FLUID 65 %; MONO/MACROPHG,BODY FLUID 32 %
== END ==
LOC: US 12:10
PROVIDERS: ATTEND Internal Medicine Pulmonary Disease
DX: J90 Pleural effusion, not elsewhere classified (principal)
CPT/HCPCS: 32555; 36415; 71045; 82945; 83615; 84157; 85049; 85610; 85730; 87070; 87205; 88112; 88305; 89051

== ENCOUNTER → 2018-10-18 | Outpatient (CLI) | payer MEDICARE ==
--- NOTE | 2018-10-18 10:43 | Diagnostic Imaging Report ---
PROCEDURE: X-RAY CHEST, TWO VIEWS COMPARISON: 09/19/2018. INDICATIONS: follow up effusion FINDINGS: The lungs remain well-inflated. Moderate left pleural effusion has marginally decreased in size relative to 09/19/2018, with adjacent lower lobe and lingular air space opacities, likely atelectasis. Right lung is grossly clear. Stable cardiomediastinal contour with right subclavian approach and plan we'll cardiac device body and leads, enlargement of the cardiac silhouette, and aortic tortuosity. Colonic interposition between the right hemidiaphragm and liver. Minimal interval osseous callus formation along multiple segmental left-sided rib fractures. CONCLUSION: Moderate left pleural effusion has marginally decreased in size relative to 09/19/2018. Consider CT scan of the chest with contrast to evaluate for retained hemothorax in the setting of multiple healing left-sided rib fractures. Otherwise stable chest with persistent findings including borderline cardiomegaly without evidence of vascular decompensation. Dictated by: Pankaj Joya M.D. on 10/18/2018 at 10:53 Electronically approved by: Pankaj Joya M.D. on 10/18/2018 at 10:53
== END ==
LOC: RAD 09:45
PROVIDERS: ATTEND Internal Medicine Pulmonary Disease
DX: Z09 Encounter for follow-up examination after completed treatment for conditions other than malignant neoplasm (principal); J90 Pleural effusion, not elsewhere classified
CPT/HCPCS: 71046

== ENCOUNTER 2019-01-08 12:27 | Emergency (ER) | payer MEDICARE ==
[~2019-01-08] VITALS: Ht 177.8 cm; Wt 85.7 kg
[2019-01-08] MEDS ORDERED: ASPIRIN 81 MG CHEW TAB PO ONE (13:00)
--- NOTE | 2019-01-08 13:28 | Diagnostic Imaging Report ---
Exam: Head CT without contrast History: Left-sided numbness. Comparison studies: Head CT 01/17/2018. Technique: Axial images were obtained from the skull base to the vertex. Coronal and sagittal images reconstructed from the axial data. Dose modulation, iterative reconstruction, and/or weight based adjustment of the mA/kV was utilized to reduce the radiation dose to as low as reasonably achievable. Radiation dose: Total DLP: 921 mGy*cm. Estimated effective dose: DLP x 0.015 Intravenous contrast: None Findings: Scalp: No abnormalities. Bones: No fractures, blastic or lytic lesions. Brain sulci: Mildly prominent. Ventricles: Mild compensatory dilatation. No hydrocephalus. Extra-axial spaces: No masses, no fluid collection. Parenchyma: No mass, acute hemorrhage or acute cortical infarcts. Chronic cortical/subcortical insult along the right superior frontal sulcus and small insult in the right superior and left posterior cerebellum are unchanged. A few scattered hypodensities in the supratentorial white matter are nonspecific but most compatible with chronic microvascular ischemic changes. Sellar/suprasellar region: No abnormalities. Craniocervical junction: Patent foramen magnum. No Chiari one malformation. Incidental findings: Bilateral lens replacements for previous cataract surgery. Atherosclerotic calcifications in the carotid siphons an in the left intradural vertebral artery. IMPRESSION: No acute intracranial abnormalities. No changes from the prior head CT of 01/17/2018. Chronic findings: 1. Mild generalized brain volume loss. 2. Mild microvascular ischemic changes. 3. 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 Signed by: Dr. Pankaj Linares M.D. on 01/08/2019 1:25 PM
[2019-01-08 13:29] LABS: BASOPHILS % 0.4 % (0.0-1.0); EOSINOPHILS # (AUTO) 0.3 (0.0-0.4); EOSINOPHILS % 3.4 % (0.0-6.0); HEMATOCRIT 43.9 % (38.2-49.6); HEMOGLOBIN 14.6 g/dL (14.0-18.0); LYMPHOCYTES # (AUTO) 1.9 (1.0-3.2); LYMPHOCYTES % 22.5 % (18.0-39.1); MEAN CORPUSCULAR HEMOGLOBIN 30.4 pg (28-32); MEAN CORPUSCULAR HGB CONC 33.3 g/dL (31-35); MEAN CORPUSCULAR VOLUME 91.3 fL (81-99); MONOCYTES # (AUTO) 0.9 (0.2-0.8); NEUTROPHILS # (AUTO) 5.2 (2.1-6.9); NEUTROPHILS % 62.3 % (38.7-80.0); PLATELET COUNT 161 x10e3/uL (140-360); RED BLOOD COUNT 4.81 x10e6/uL (4.3-5.7); RED CELL DISTRIBUTION WIDTH 13.6 % (11.7-14.4)
--- NOTE | 2019-01-08 13:30 | Diagnostic Imaging Report ---
Examination: Single AP view of the chest. COMPARISON: 10/18/2018 INDICATION: Left-sided numbness DISCUSSION: Right subclavian approach implantable cardiac device body and leads are unchanged. The lungs remain well-inflated. Left pleural effusion appears slightly smaller than that noted on 10/18/2018. Persistent linear opacity in the left midlung which may reflect atelectasis or scar. No new consolidations. Stable mild enlargement of the cardiac silhouette. No overt pulmonary edema. Multiple left-sided rib fracture deformities are again noted. IMPRESSION: Small left pleural effusion appears to have decreased in size relative to 10/18/2018. Otherwise stable appearance of the chest. Cardiomegaly without overt pulmonary edema. Signed by: Dr. Pankaj Joya M.D. on 01/08/2019 1:27 PM
[2019-01-08 13:37] LABS: BILIRUBIN,URINE NEGATIVE (NEGATIVE); CLARITY,URINE SL CLOUDY (CLEAR); COLOR,URINE YELLOW (YELLOW); KETONES,URINE NEGATIVE (NEGATIVE); LEUKOCYTE ESTERASE ,URINE NEGATIVE (NEGATIVE); NITRITE,URINE NEGATIVE (NEGATIVE); PROTEIN,URINE DIPSTICK NEGATIVE (NEGATIVE); URINE UROBILINOGEN 1 mg/dL (0.2 - 1)
[2019-01-08 13:42] LABS: INR 1.85; PROTHROMBIN TIME 22.8 seconds (11.9-14.5)
[2019-01-08 13:43] LABS: PARTIAL THROMBOPLASTIN TIME 54.1 seconds (23.8-35.5)
[2019-01-08 13:48] LABS: ALANINE AMINOTRANSFERASE 15 IU/L (0-55); ALBUMIN 3.5 g/dL (3.5-5.0); ALBUMIN/GLOBULIN RATIO 0.9 (0.8-2.0); ALKALINE PHOSPHATASE 83 IU/L (40-150); ANION GAP 11.8 mmol/L (8-16); BLOOD UREA NITROGEN 23 mg/dL (7-26); BUN/CREATININE RATIO 21 (6-25); CALCIUM 9.9 mg/dL (8.4-10.2); CARBON DIOXIDE 26 mmol/L (22-29); CHLORIDE 107 mmol/L (98-107); CREATINE KINASE 67 IU/L (30-200); CREATININE, SERUM 1.12 mg/dL (0.72-1.25); EST GLOMERULAR FILTRATION RATE > 60 ML/MIN (60-); GLUCOSE 80 mg/dL (74-118); MAGNESIUM 1.9 MG/DL (1.3-2.1); POTASSIUM 3.8 mmol/L (3.5-5.1); SODIUM 141 mmol/L (136-145)
[2019-01-08 16:13] VITALS: BP 181/87
== END 2019-01-08 16:28 | disposition home or self-care (01) ==
LOC: ER 12:27
DX: R07.89 Other chest pain (principal); G62.9 Polyneuropathy, unspecified; I10 Essential (primary) hypertension; E11.9 Type 2 diabetes mellitus without complications; J44.9 Chronic obstructive pulmonary disease, unspecified; I50.9 Heart failure, unspecified; E03.9 Hypothyroidism, unspecified; I25.10 Atherosclerotic heart disease of native coronary artery without angina pectoris; G40.909 Epilepsy, unspecified, not intractable, without status epilepticus
CPT/HCPCS: 36415; 70450; 71045; 80053; 81001; 82550; 82553; 83735; 83880; 84484; 85025; 85610; 85730; 87086; 93005; 99284

== ENCOUNTER → 2019-01-17 | Outpatient (CLI) | payer MEDICARE ==
--- NOTE | 2019-01-17 09:10 | Diagnostic Imaging Report ---
EXAM: CHEST 2 VIEWS, PA and lateral DATE: 01/17/2019 Time stamp on exam: 8:37 AM INDICATION: Fluid on lungs COMPARISON: 01/08/2019 FINDINGS: LINES/TUBES: Right chest wall dual lead cardiac device with the leads intact. LUNGS: No consolidations or edema. Compressive atelectasis involving the left lower lung. PLEURA: Small-moderate left pleural effusion not significantly changed. HEART AND MEDIASTINUM: Normal size and contour. BONES AND SOFT TISSUES: Multiple old left rib fractures. IMPRESSION: Small-moderate left pleural effusion Signed by: Dr. Gage Harry DO on 01/17/2019 9:07 AM
== END ==
LOC: RAD 08:30
PROVIDERS: ATTEND Internal Medicine Pulmonary Disease
DX: J90 Pleural effusion, not elsewhere classified (principal)
CPT/HCPCS: 71046

== ENCOUNTER → 2019-05-23 | Outpatient (CLI) | payer MEDICARE ==
--- NOTE | 2019-05-23 11:03 | Diagnostic Imaging Report ---
EXAMINATION: CHEST 2 VIEWS INDICATION: Pleural effusion COMPARISON: Multiple prior chest radiograph, most recently 01/17/2019 FINDINGS: TUBES and LINES: Right chest pacemaker device with leads injecting over the right atrium and right ventricle. LUNGS: The lungs are inflated. There is left basilar opacity silhouetting the left brittney diaphragm. PLEURA: Small left pleural effusion, not significantly changed compared to 01/17/2019. No pneumothorax. HEART AND MEDIASTINUM: The cardiomediastinal silhouette is stable in size and contour. BONES AND SOFT TISSUES: No acute fracture or dislocation. UPPER ABDOMEN: No free air under the diaphragm. IMPRESSION: Small left pleural effusion and associated left basilar atelectasis, unchanged from 01/17/2019. Signed by: Franklyn Upton MD on 05/23/2019 11:00 AM
== END ==
LOC: RAD 09:15
PROVIDERS: ATTEND Internal Medicine Pulmonary Disease
DX: Z09 Encounter for follow-up examination after completed treatment for conditions other than malignant neoplasm (principal); J90 Pleural effusion, not elsewhere classified
CPT/HCPCS: 71046

== ENCOUNTER → 2020-04-28 | Outpatient (CLI) | payer MEDICARE ==
--- NOTE | 2020-04-28 15:24 | Diagnostic Imaging Report ---
EXAMINATION: CHEST 2 VIEWS INDICATION: Pleural effusion COMPARISON: Chest radiograph of 05/23/2019 FINDINGS: LINES/TUBES:Right chest pacer LUNGS:The right lung is well-inflated. Lung volumes are relatively low. There is left basilar opacity silhouetting the left brittney diaphragm. PLEURA:Unchanged left pleural effusion. No pneumothorax. MEDIASTINUM:The cardiomediastinal silhouette appears unchanged in size and shape. BONES/SOFT TISSUES:No acute osseous injury. Unchanged old left lateral rib fracture deformities. ABDOMEN:No free air under the diaphragm. IMPRESSION: Unchanged left pleural effusion and left basilar patchy opacities, most likely subsegmental atelectasis. Signed by: Franklyn Upton MD on 04/28/2020 3:20 PM
== END ==
LOC: RAD 13:54
PROVIDERS: ATTEND Internal Medicine Pulmonary Disease
DX: J90 Pleural effusion, not elsewhere classified (principal)
CPT/HCPCS: 71046

== ENCOUNTER → 2020-07-16 | Outpatient (CLI) | payer MEDICARE ==
--- NOTE | 2020-07-16 09:49 | Diagnostic Imaging Report ---
Chest, 2 views, 07/16/2020. History: COPD. Comparison: 04/28/2020. Findings: The cardiomediastinal silhouette and pulmonary vasculature are within normal limits. Left basilar opacity with blunting of the left costophrenic sulcus is unchanged. Right lung remains clear. Right subclavian dual-lead pacer is unchanged in position. Multiple old left rib fractures are again noted. There are no acute osseous or soft tissue abnormalities. Impression: Left basilar atelectasis and small left pleural effusion without significant change. Signed by: Eldno Hansen on 07/16/2020 9:45 AM
== END ==
LOC: RAD 09:01
PROVIDERS: ATTEND Internal Medicine Cardiovascular Disease
DX: I50.1 Left ventricular failure, unspecified (principal); J44.9 Chronic obstructive pulmonary disease, unspecified
CPT/HCPCS: 71046

== ENCOUNTER → 2020-10-15 | Outpatient (CLI) | payer MEDICARE | LOC: CARD 11:48 | PROVIDERS: ATTEND Family Medicine | DX: I70.202 Unspecified atherosclerosis of native arteries of extremities, left leg (principal); R60.0 Localized edema | CPT/HCPCS: 93925 ==

== ENCOUNTER → 2021-02-01 | Outpatient (CLI) | payer MEDICARE | LOC: RAD 08:42 | PROVIDERS: ATTEND Internal Medicine Pulmonary Disease | DX: J90 Pleural effusion, not elsewhere classified (principal) | CPT/HCPCS: 71046 ==

== ENCOUNTER → 2021-05-25 | Outpatient (CLI) | payer MEDICARE | LOC: RAD 09:58 | PROVIDERS: ATTEND Internal Medicine Cardiovascular Disease | DX: J44.9 Chronic obstructive pulmonary disease, unspecified (principal); G40.A09 Absence epileptic syndrome, not intractable, without status epilepticus | CPT/HCPCS: 71046 ==

== ENCOUNTER → 2021-08-03 | Outpatient (CLI) | payer MEDICARE | LOC: RAD 09:09 | PROVIDERS: ATTEND Internal Medicine Pulmonary Disease | DX: J90 Pleural effusion, not elsewhere classified (principal); I51.7 Cardiomegaly | CPT/HCPCS: 71046 ==

== ENCOUNTER → 2022-01-25 | Outpatient (CLI) | payer MEDICARE | LOC: RAD 10:23 | PROVIDERS: ATTEND Internal Medicine Pulmonary Disease | DX: J90 Pleural effusion, not elsewhere classified (principal); I51.7 Cardiomegaly | CPT/HCPCS: 71046 ==

== ENCOUNTER → 2023-03-13 | Outpatient (CLI) | payer MEDICARE | LOC: RAD 11:32 | PROVIDERS: ATTEND Internal Medicine Pulmonary Disease | DX: J90 Pleural effusion, not elsewhere classified (principal) | CPT/HCPCS: 71046 ==

== ENCOUNTER 2023-08-29 17:19 | Inpatient (IN) | payer MEDICARE ==
[2023-08-29] VITALS (10 sets, daily range): BP systolic 65–158; BP diastolic 54–158; PULSE 60–117; RESP 15–25; TEMP 98.7; O2SAT 89–100
[~2023-08-29] VITALS: Ht 177.8 cm; Wt 90.5 kg
[2023-08-29] MEDS ORDERED: TETANUS/DIPHTHERIA TOX ADULT 0.5 ML SYR IM ONE (18:00)
[2023-08-29] MEDS ORDERED: ONDANSETRON HCL INJ 2MG/ML 2ML 2 MG/ML VIAL IV PRN (19:15)
[2023-08-29] MEDS ORDERED: SODIUM CHLORIDE FLUSH 10 ML SYR INJ PRN (19:15)
[2023-08-29] MEDS ORDERED: Morphine 2mg Syringe 2 MG/ML SYR IV PRN ×2 (19:15→22:00)
[2023-08-29 19:16] LABS: BASOPHILS % 0.3 % (0.0-1.0); EOSINOPHILS # (AUTO) 0.1 (0.0-0.4); EOSINOPHILS % 0.7 % (0.0-6.0); HEMATOCRIT 40.4 % (38.2-49.6); HEMOGLOBIN 13.6 g/dL (14.0-18.0); LYMPHOCYTES # (AUTO) 0.8 (1.0-3.2); LYMPHOCYTES % 7.2 % (18.0-39.1); MEAN CORPUSCULAR HEMOGLOBIN 31.6 pg (28-32); MEAN CORPUSCULAR HGB CONC 33.7 g/dL (31-35); MEAN CORPUSCULAR VOLUME 93.7 fL (81-99); MONOCYTES # (AUTO) 0.7 (0.2-0.8); MONOCYTES % 6.5 % (4.4-11.3); NEUTROPHILS # (AUTO) 9.7 (2.1-6.9); NEUTROPHILS % 84.9 % (38.7-80.0); PLATELET COUNT 167 x10e3/uL (140-360); RED BLOOD COUNT 4.31 x10e6/uL (4.3-5.7); RED CELL DISTRIBUTION WIDTH 13.6 % (11.7-14.4)
[2023-08-29 19:24] LABS: INR 1.53; PROTHROMBIN TIME 19.3 seconds (11.9-14.5)
[2023-08-29 19:25] LABS: PARTIAL THROMBOPLASTIN TIME 47.9 seconds (23.8-35.5)
[2023-08-29 19:30] LABS: ALBUMIN 3.5 g/dL (3.5-5.0); ALBUMIN/GLOBULIN RATIO 0.8 (0.8-2.0); ANION GAP 13.1 mmol/L (8-16); CALCIUM 10.1 mg/dL (8.4-10.2); CREATININE, SERUM 1.27 mg/dL (0.72-1.25); POTASSIUM 4.1 mmol/L (3.5-5.1)
[2023-08-29] MEDS ORDERED: HYDROCHLOROTHIAZIDE 25 MG TAB PO SCH (22:00)
[2023-08-29] MEDS ORDERED: ACETAMINOPHEN 325 MG TAB PO PRN (22:00)
[2023-08-29] MEDS ORDERED: GUAIFENESIN/DEXTROMETHORPHAN LIQD 5 ML UDC PO PRN (22:00)
[2023-08-29] MEDS ORDERED: HYDRALAZINE HCL 20 MG/ML VIAL IV PRN (22:00)
[2023-08-29] MEDS ORDERED: MAGNESIUM/ALUMINUM/SIMETHICONE 30 ML UDC PO PRN (22:00)
[2023-08-29] MEDS ORDERED: MELATONIN 3 MG TAB PO PRN (22:00)
[2023-08-29] MEDS ORDERED: ENTRESTO 24 MG1 EACH (22:38)
[2023-08-29] MEDS ORDERED: FLONASE ALLERG9.9 ML INH (22:38)
[2023-08-29] MEDS ORDERED: ADVAIR 250-501 EACH INH (22:38)
[2023-08-29] MEDS ORDERED: FISH OIL 1,0001 EAC7 (22:38)
[2023-08-29] MEDS ORDERED: ASPIRIN81 MG PO (22:38)
[2023-08-29] MEDS ORDERED: XARELTO20 MG PO (22:38)
[2023-08-29] MEDS ORDERED: AMLODIPINE BESYL5 MG PO (22:38)
[2023-08-29] MEDS ORDERED: CALCIUM ACETAT667 M1 PO (22:38)
[2023-08-29] MEDS ORDERED: MULTI-VITAMIN1 EACH PO (22:38)
[2023-08-29] MEDS ORDERED: VITAMIN D3125 MCG (22:38)
[2023-08-29] MEDS ORDERED: NEURONTIN300 MG PO (22:39)
[2023-08-29] MEDS: LEVETIRACETAM 500 MG TAB PO SCH (23:40)
[2023-08-29] MEDS: CARVEDILOL 12.5 MG TAB PO SCH (23:42)
[2023-08-30] VITALS (52 sets, daily range): BP systolic 84–124; BP diastolic 47–70; PULSE 56–117; RESP 14–24; TEMP 97.7–98.6; O2SAT 89–100
[2023-08-30 00:21] LABS: HEMATOCRIT 35.9 % (38.2-49.6); HEMOGLOBIN 12.3 g/dL (14.0-18.0)
[2023-08-30 06:49] LABS: HEMATOCRIT 37.1 % (38.2-49.6); HEMOGLOBIN 12.5 g/dL (14.0-18.0)
[2023-08-30] MEDS: ALBUTEROL SULF 0.083% NEB SOLN 3 ML NEB NEB PRN ×2 (07:21→20:26)
[2023-08-30] MEDS: LEVOTHYROXINE SODIUM 50 MCG TAB PO SCH (08:25)
[2023-08-30] MEDS: SIMVASTATIN 40 MG TAB PO SCH ×2 (08:25→21:05)
[2023-08-30] MEDS: MULTIVITAMINS/MINERALS TAB PO SCH (08:25)
[2023-08-30] MEDS: FUROSEMIDE 20 MG TAB PO SCH (08:26)
[2023-08-30] MEDS: LIDOCAINE 4% PATCH TP SCH (08:26)
[2023-08-30] MEDS: LEVETIRACETAM 500 MG TAB PO SCH ×2 (08:26→22:00)
[2023-08-30] MEDS: DOCUSATE SODIUM 100 MG CAP PO SCH ×2 (08:30→16:17)
[2023-08-30] MEDS: DICYCLOMINE HCL 10 MG CAP PO SCH ×3 (08:30→21:04)
[2023-08-30] MEDS: CARVEDILOL 12.5 MG TAB PO SCH ×2 (08:30→22:00)
[2023-08-30] MEDS: SALMETEROL XINAF/FLUTICASONE 250/50 MCG INHALER INH SCH ×2 (09:00→19:13)
[2023-08-30] MEDS ORDERED: ASPIRIN 81 MG CHEW TAB PO SCH (09:00)
[2023-08-30] MEDS ORDERED: MULTIVITAMINS/MINERALS TAB PO SCH (09:00)
[2023-08-30] MEDS: TRAMADOL HCL 50 MG TAB PO PRN ×2 (12:50→21:05)
[2023-08-30 14:29] LABS: HEMATOCRIT 37.5 % (38.2-49.6); HEMOGLOBIN 12.6 g/dL (14.0-18.0)
[2023-08-30] MEDS ORDERED: GABAPENTIN 300 MG CAP PO SCH (21:00)
[2023-08-30] MEDS: PANTOPRAZOLE SOD 40 MG TABEC PO SCH (21:04)
[2023-08-30] MEDS: POTASSIUM CHLORIDE 10MEQ EA PO SCH (22:15)
[2023-08-31] VITALS (25 sets, daily range): BP systolic 102–135; BP diastolic 59–80; PULSE 58–75; RESP 15–27; TEMP 97.8–98.5; O2SAT 91–100
[2023-08-31 05:48] LABS: BASOPHILS % 0.3 % (0.0-1.0); EOSINOPHILS # (AUTO) 0.1 (0.0-0.4); EOSINOPHILS % 1.7 % (0.0-6.0); HEMATOCRIT 34.8 % (38.2-49.6); HEMOGLOBIN 11.7 g/dL (14.0-18.0); LYMPHOCYTES % 12.3 % (18.0-39.1); MEAN CORPUSCULAR HEMOGLOBIN 31.5 pg (28-32); MEAN CORPUSCULAR HGB CONC 33.6 g/dL (31-35); MEAN CORPUSCULAR VOLUME 93.5 fL (81-99); MONOCYTES # (AUTO) 0.9 (0.2-0.8); MONOCYTES % 11.7 % (4.4-11.3); NEUTROPHILS # (AUTO) 5.7 (2.1-6.9); NEUTROPHILS % 73.7 % (38.7-80.0); PLATELET COUNT 143 x10e3/uL (140-360); RED BLOOD COUNT 3.72 x10e6/uL (4.3-5.7); WHITE BLOOD COUNT 7.71 x10e3/uL (4.8-10.8)
[2023-08-31 06:14] LABS: ANION GAP 12.6 mmol/L (8-16); CALCIUM 9.4 mg/dL (8.4-10.2); CREATININE, SERUM 1.21 mg/dL (0.72-1.25); POTASSIUM 3.6 mmol/L (3.5-5.1)
[2023-08-31] MEDS: TRAMADOL HCL 50 MG TAB PO PRN ×2 (06:30→14:46)
[2023-08-31] MEDS: LEVOTHYROXINE SODIUM 50 MCG TAB PO SCH (07:30)
[2023-08-31] MEDS: SALMETEROL XINAF/FLUTICASONE 250/50 MCG INHALER INH SCH ×2 (07:38→19:15)
[2023-08-31] MEDS: DOCUSATE SODIUM 100 MG CAP PO SCH ×2 (08:19→19:38)
[2023-08-31] MEDS: MULTIVITAMINS/MINERALS TAB PO SCH (08:19)
[2023-08-31] MEDS: DICYCLOMINE HCL 10 MG CAP PO SCH ×3 (08:19→20:36)
[2023-08-31] MEDS: LIDOCAINE 4% PATCH TP SCH (08:19)
[2023-08-31] MEDS ORDERED: MUPIROCIN 2% OINT 22 GM TUBE TOP SCH (14:00)
[2023-08-31] MEDS ORDERED: RIVAROXABAN 20 MG TABLET PO SCH (17:00)
[2023-08-31] MEDS: PANTOPRAZOLE SOD 40 MG TABEC PO SCH (20:36)
[2023-09-01] VITALS (8 sets, daily range): BP systolic 129–146; BP diastolic 66–75; PULSE 55–66; RESP 18–20; TEMP 97.5–98.4; O2SAT 93–100
[2023-09-01 05:49] LABS: BASOPHILS % 0.3 % (0.0-1.0); EOSINOPHILS # (AUTO) 0.1 (0.0-0.4); EOSINOPHILS % 1.4 % (0.0-6.0); HEMATOCRIT 36.4 % (38.2-49.6); HEMOGLOBIN 12.2 g/dL (14.0-18.0); LYMPHOCYTES % 13.2 % (18.0-39.1); MEAN CORPUSCULAR HEMOGLOBIN 31.6 pg (28-32); MEAN CORPUSCULAR HGB CONC 33.5 g/dL (31-35); MEAN CORPUSCULAR VOLUME 94.3 fL (81-99); MONOCYTES # (AUTO) 1.1 (0.2-0.8); MONOCYTES % 14.2 % (4.4-11.3); NEUTROPHILS # (AUTO) 5.5 (2.1-6.9); NEUTROPHILS % 70.6 % (38.7-80.0); PLATELET COUNT 159 x10e3/uL (140-360); RED BLOOD COUNT 3.86 x10e6/uL (4.3-5.7); RED CELL DISTRIBUTION WIDTH 13.9 % (11.7-14.4); WHITE BLOOD COUNT 7.74 x10e3/uL (4.8-10.8)
[2023-09-01 06:31] LABS: ANION GAP 14.7 mmol/L (8-16); CALCIUM 9.6 mg/dL (8.4-10.2); CREATININE, SERUM 1.07 mg/dL (0.72-1.25); POTASSIUM 3.7 mmol/L (3.5-5.1)
[2023-09-01] MEDS: SALMETEROL XINAF/FLUTICASONE 250/50 MCG INHALER INH SCH (07:35)
[2023-09-01] MEDS: DOCUSATE SODIUM 100 MG CAP PO SCH (08:34)
[2023-09-01] MEDS: MULTIVITAMINS/MINERALS TAB PO SCH (08:35)
[2023-09-01] MEDS: DICYCLOMINE HCL 10 MG CAP PO SCH (08:35)
[2023-09-01] MEDS: LEVOTHYROXINE SODIUM 50 MCG TAB PO SCH (08:35)
[2023-09-01] MEDS: POTASSIUM CHLORIDE 10MEQ EA PO SCH (08:35)
[2023-09-01] MEDS: LIDOCAINE 4% PATCH TP SCH (08:36)
[2023-09-01] MEDS: FUROSEMIDE 20 MG TAB PO SCH (08:36)
[2023-09-01] MEDS ORDERED: MUPIROCIN 2% OINT 22 GM TUBE TOP SCH (09:00)
[2023-09-01] MEDS ORDERED: ASPIRIN 81 MG CHEW TAB PO SCH (09:00)
[2023-09-01] MEDS ORDERED: CARVEDILOL 3.125 MG TAB PO SCH (09:00)
[2023-09-01] MEDS ORDERED: LIDOCAINE1 EACH TOP (09:22)
[2023-09-01] MEDS ORDERED: COREG3.125 MG PO (09:22)
[2023-09-01] MEDS ORDERED: ULTRAM 50MG50 MG PO (09:22)
[2023-09-01] MEDS: TRAMADOL HCL 50 MG TAB PO PRN (11:37)
[2023-09-01] MEDS ORDERED: ONDANSETRON HCL 4 MG ORAL DISINTEGRATING TAB PO PRN (12:45)
[2023-09-01] MEDS ORDERED: LEVETIRACETAM 500 MG TAB PO SCH (22:00)
[2023-09-11] MEDS ORDERED: KEPPRA250 MG PO (05:39)
== END 2023-09-01 13:38 | disposition home health service (06) | DRG 200 ==
LOC: ER 17:35 → ERHOLD 19:11 → ICU 21:59 → MED/SURG3 08-31 17:13
PROVIDERS: ADMIT Family Medicine Adult Medicine; ATTEND Family Medicine Adult Medicine
DX: S27.2XXA Traumatic hemopneumothorax, initial encounter (principal); J91.8 Pleural effusion in other conditions classified elsewhere; S22.41XA Multiple fractures of ribs, right side, initial encounter for closed fracture; S80.812A Abrasion, left lower leg, initial encounter; S50.811A Abrasion of right forearm, initial encounter; W18.2XXA Fall in (into) shower or empty bathtub, initial encounter; Y92.002 Bathroom of unspecified non-institutional (private) residence as the place of occurrence of the external cause; J44.9 Chronic obstructive pulmonary disease, unspecified; Z68.28 Body mass index [BMI] 28.0-28.9, adult; E78.5 Hyperlipidemia, unspecified; I50.9 Heart failure, unspecified; I11.0 Hypertensive heart disease with heart failure; I48.0 Paroxysmal atrial fibrillation; I49.5 Sick sinus syndrome; G40.909 Epilepsy, unspecified, not intractable, without status epilepticus; G47.33 Obstructive sleep apnea (adult) (pediatric); D72.820 Lymphocytosis (symptomatic); G47.36 Sleep related hypoventilation in conditions classified elsewhere; E03.9 Hypothyroidism, unspecified; I25.10 Atherosclerotic heart disease of native coronary artery without angina pectoris; K21.9 Gastro-esophageal reflux disease without esophagitis; H81.10 Benign paroxysmal vertigo, unspecified ear; F17.290 Nicotine dependence, other tobacco product, uncomplicated; R91.1 Solitary pulmonary nodule; Z66 Do not resuscitate; Z95.810 Presence of automatic (implantable) cardiac defibrillator; Z79.899 Other long term (current) drug therapy; Z79.890 Hormone replacement therapy; Z79.01 Long term (current) use of anticoagulants; E66.9 Obesity, unspecified; Z20.822 Contact with and (suspected) exposure to COVID-19
CPT/HCPCS: 36415; 70450; 71045; 71250; 72125; 73521; 80048; 80053; 85014; 85018; 85025; 85610; 85730; 86850; 86900; 90471; 90714; 94640; 94660; 94664; 94799; 99252; 99284; J2270; J2405; U0002

== ENCOUNTER → 2023-09-20 | Outpatient (REF) | payer MEDICARE ==
[~2023-09-20] MED LIST changes: +CALCIUM ACETAT667 M1 PO; +COREG3.125 MG PO; +ENTRESTO 24 MG1 EACH; +FISH OIL 1,0001 EAC7; +FLONASE ALLERG9.9 ML INH; +KEPPRA250 MG PO; +LIDOCAINE1 EACH TOP; +MULTI-VITAMIN1 EACH PO; +MUPIROCIN22 GM TOP; +NEURONTIN300 MG PO; +ULTRAM 50MG50 MG PO; +VITAMIN D3125 MCG
[2023-09-20 09:35] LABS: INR 1.25
[2023-09-20 09:36] LABS: PARTIAL THROMBOPLASTIN TIME 49.6 seconds (23.8-35.5)
== END ==
LOC: US 07:58
PROVIDERS: ATTEND Internal Medicine Pulmonary Disease
DX: J90 Pleural effusion, not elsewhere classified (principal)
CPT/HCPCS: 32555; 36415; 71045; 85610; 85730

== ENCOUNTER → 2023-10-10 | Outpatient (REF) | payer MEDICARE | LOC: RAD 10:00 | PROVIDERS: ATTEND Internal Medicine Pulmonary Disease | DX: J90 Pleural effusion, not elsewhere classified (principal) | CPT/HCPCS: 71046 ==

== ENCOUNTER → 2023-10-10 | Outpatient (REF) | payer MEDICARE ==
[2023-10-10 16:08] LABS: BODY FLUID APPEARANCE CLOUDY; BODY FLUID COLOR RED; BODY FLUID TYPE PLEURAL
[2023-10-10 16:31] LABS: RBC,BODY FLUID 25000 cells/uL; WBC,BODY FLUID 300 cells/uL
[2023-10-10 16:52] LABS: EOSINOPHILS,BODY FLUID 3 %; LYMPHOCYTES,BODY FLUID 22 %; MONO/MACROPHG,BODY FLUID 64 %; NEUTROPHILS,BODY FLUID 11 %; TOTAL CELLS COUNTED (DIFF) 100
== END ==
LOC: US 14:17
PROVIDERS: ATTEND Internal Medicine Pulmonary Disease
DX: J90 Pleural effusion, not elsewhere classified (principal)
CPT/HCPCS: 32555; 36415; 71045; 83615; 84157; 87070; 87205; 88112; 88305; 89051

== ENCOUNTER → 2023-10-10 | Outpatient (REF) | payer MEDICARE ==
[2023-10-10 10:59] LABS: ALBUMIN 2.6 g/dL (3.5-5.0); ANION GAP 15.1 mmol/L (8-16); BILIRUBIN,DIRECT 0.6 mg/dL (0.0-0.5); BILIRUBIN,TOTAL 1.1 mg/dL (0.2-1.2); CALCIUM 9.8 mg/dL (8.4-10.2); CREATININE, SERUM 0.89 mg/dL (0.72-1.25); POTASSIUM 4.1 mmol/L (3.5-5.1); TOTAL PROTEIN 7.1 g/dL (6.5-8.1)
== END ==
LOC: LAB 10:04
PROVIDERS: ATTEND Internal Medicine Cardiovascular Disease
DX: E11.9 Type 2 diabetes mellitus without complications (principal); I10 Essential (primary) hypertension; I50.1 Left ventricular failure, unspecified; N19 Unspecified kidney failure; E78.5 Hyperlipidemia, unspecified
CPT/HCPCS: 36415; 80048; 80076

== ENCOUNTER → 2023-10-13 | Outpatient (REF) | payer MEDICARE ==
[2023-10-13 14:24] LABS: BODY FLUID APPEARANCE CLOUDY; BODY FLUID COLOR RED; BODY FLUID TYPE PLEURAL; RBC,BODY FLUID 24000 cells/uL; WBC,BODY FLUID 179 cells/uL
[2023-10-13 15:04] LABS: EOSINOPHILS,BODY FLUID 1 %; LYMPHOCYTES,BODY FLUID 37 %; MONO/MACROPHG,BODY FLUID 40 %; NEUTROPHILS,BODY FLUID 22 %; TOTAL CELLS COUNTED (DIFF) 100
[2023-10-16 09:55] LABS: GLUCOSE,BODY FLUID 88 mg/dL
== END ==
LOC: US 12:04
PROVIDERS: ATTEND Internal Medicine Pulmonary Disease
DX: J90 Pleural effusion, not elsewhere classified (principal)
CPT/HCPCS: 32555; 36415; 71045; 82945; 83615; 89051

== ENCOUNTER → 2023-12-19 | Outpatient (REF) | payer MEDICARE | LOC: RAD 11:43 | PROVIDERS: ATTEND Internal Medicine Cardiovascular Disease | DX: J90 Pleural effusion, not elsewhere classified (principal); I50.1 Left ventricular failure, unspecified | CPT/HCPCS: 71046 ==